=== PATIENT | male | born 2000 | race Caucasian/White ===

== ENCOUNTER 2023-10-29 19:43 | Emergency (ER) | payer OTHER, SELFPAY ==
--- NOTE | ~2023-10-29 | CT_ITS ---
EXAMINATION: CT ABDOMEN AND PELVIS WITH CONTRAST CLINICAL INFORMATION: Abdominal pain. COMPARISON: None available. TECHNIQUE: Multidetector volumetric images were obtained from the superior aspect of the liver through the pubic symphysis following administration 85 mL of Omnipaque 350 intravenous contrast. Sagittal and coronal reformatted images were obtained on the technologist's workstation. Oral contrast: No This CT examination was performed using dose optimization techniques as appropriate, variously including the following: *Automated exposure control *Adjustment of mA and/or kV according to patient size (this includes techniques or standardized protocols for targeted exams where dose is matched to indication/reason for exam; i.e. extremities or head) *Use of iterative reconstruction technique DLP: 1064 mGy-cm FINDINGS: LUNG BASES: The visualized lung bases are unremarkable. LIVER, GALLBLADDER, AND BILIARY TREE: The liver is of mild diminished attenuation. No focal liver lesions are seen. There is no intrahepatic biliary duct dilatation The gallbladder is unremarkable with no evidence of radiopaque gallstones, gallbladder wall thickening, or obvious pericholecystic inflammatory changes. PANCREAS: Unremarkable. SPLEEN: Unremarkable. ADRENAL GLANDS: Unremarkable. KIDNEYS AND URETERS: The kidneys are normal in size, shape, and attenuation. There is a 2 mm nonobstructing calculus lower pole left kidney. There is no hydronephrosis. BLADDER: Unremarkable. GASTROINTESTINAL TRACT: The small and large bowel are unremarkable. The appendix is unremarkable. ABDOMINAL WALL: No significant hernia is appreciated. LYMPH NODES: Normal. VASCULAR: Unremarkable. PELVIC VISCERA: Unremarkable. OSSEOUS STRUCTURES: Unremarkable. CT/CT abdomen pelvis w IV con IMPRESSION: 2 mm nonobstructing calculus lower pole left kidney. No acute intra-abdominal process identified. Fleischner guidelines were followed.
[2023-10-29 20:18] VITALS: BP 151/90; PULSE 104; RESP 18; TEMP 36.4; O2SAT 98; BMI 38.0
--- NOTE | 2023-10-29 20:18 | ED_ITS ---
HPI - General Adult General Chief complaint: Nausea/Vomiting/Diarrhea Stated complaint: nausea,diarrhea Time Seen by Provider: 10/29/23 23:59 Source: patient, RN notes reviewed and old records reviewed Mode of arrival: ambulatory Limitations: no limitations History of Present Illness HPI narrative: 23-year-old male presents for evaluation of abdominal pain, vomiting, diarrhea. He reports his symptoms started about 1 week ago. He also reports that he had red eyes over the last few days but 2 days ago he started to ?turn white again. ? He denies any history abdominal surgeries. Today he developed dizziness he is unsure if that is because he is dehydrated He states that multiple members of his family have had history of appendicitis and he is concerned about this He denies any difficulty urinating, blood in the urine Denies any recent travel or antibiotic use Related Data Previous Rx's Medication Instructions Recorded doxycycline hyclate 100 mg tablet 100 mg PO BID #20 tabs 10/30/23 ondansetron 4 mg disintegrating 4 mg PO Q8H PRN nausea and 10/30/23 tablet vomiting #20 tabs Allergies Allergy/AdvReac Type Severity Reaction Status Date / Time No Known Allergies Allergy Verified 10/29/23 20:18 Review of Systems 2 Constitutional: Constitutional: Denies body ache(s), Denies chills and Denies fever(s) Cardiovascular: Cardiovascular: Denies chest pain and Denies dyspnea Respiratory: Respiratory: Denies cough and Denies dyspnea Gastrointestinal: Gastrointestinal: Reports abdominal pain, Denies hematochezia, Reports diarrhea and Reports vomiting Musculoskeletal: Musculoskeletal: Denies back pain Integumentary/Breasts: Skin/Breast: Denies rash PMFSH Social History Social History Alcohol intake: current Alcohol intake frequency: holidays/special occasions only Smoked in Last 30 Days: No Use of substances other than those prescribed or required for medical reasons: Yes Substance Use Type: Marijuana Advance Directives: No Advance Directives Information Provided: Yes Physical Exam ED Vital Signs: Vital Signs - 24 hr 10/29/23 20:18 10/30/23 01:23 Temperature 97.6 F 97.6 F Pulse Rate 104 H 82 Respiratory Rate 18 18 Blood Pressure 151/90 H 116/50 L Pulse Oximetry 98 97 Oxygen Delivery Method Room Air Room Air BMI result Body Mass Index 38.0 Const General: healthy appearing, comfortable, no acute distress, alert and awake Nutritional Appearance: well nourished Orientation/consciousness: patient oriented x3 HENMT Head: Yes normocephalic and Yes atraumatic Eyes Eyelids: Yes eyelids normal Conjunctivae: conjunctivae normal Sclerae: sclerae normal Corneas: corneas normal Pupils: Equal, round and reactive pupils present EOM: EOMs intact bilaterally Neck Neck: Yes full ROM Resp Effort & Inspection: normal respiratory effort, able to speak in complete sentences and not labored GI Inspection: No distended Palpation (GI): Soft to palpation, not firm, Tenderness to palpation present (GI) in the LLQ, in the RLQ and suprapubicly; not in the epigastrum, not in the LUQ, not in the RUQ, Foreman's sign negative and with no rebound tenderness, no guarding and not rigid Skin General skin exam: elasticity normal Neuro General: patient oriented x3 Cranial nerves: Yes Equal, round and reactive pupils present and Yes Bilaterally intact EOM present Cognition (Neuro): normal cognition Extrem Other: Moving all extremities well without any obvious deformities Course Course Course Narrative: RME:?23 yo male w/ hx of asthma here w/ n/v/d x1 week. 2 episodes of vomiting. no sick contacts. denies fever, chills, abd pain, dysuria, hematuria. smokes marijuana socially. abd nd/nt. nontoxic appearing. plan for serology, labs Full HPI, ROS and PE to be performed by the primary ED provider. Reevaluation(s) Reevaluation #1: Reviewed patient's workup, he has 50 white cells in his urine no evidence of bacteria. I asked the patient about any new sexual partners reports that about a week and half ago he had a new sexual partner and did not use protection. He would like to be treated empirically for STIs will treat with ceftriaxone and doxycycline. Still awaiting patient's CT scan Time: 02:05 Medications Administered Discontinued Medications Generic Name Dose Route Start Last Admin Trade Name Freq PRN Reason Stop Dose Admin Sodium Chloride 1,000 mls @ 999 mls/hr 10/30/23 00:15 10/30/23 01:17 Ns IV 10/30/23 01:15 999 mls/hr .Q1H1M CORNELIO Administration Iohexol 85 ml 10/30/23 01:08 10/30/23 01:08 Iohexol 350 Mg/Ml 100 Ml Infus..Btl IV 10/30/23 01:09 85 ml ONCE ONE Administration Ketorolac Tromethamine 30 mg 10/30/23 00:27 10/30/23 01:17 Ketorolac Tromethamine 30 Mg/Ml Vial IVPUSH 10/30/23 00:28 30 mg ONCE ONE Administration Ondansetron HCl 4 mg 10/30/23 00:13 10/30/23 01:18 Ondansetron Hcl 4 Mg/2 Ml Vial IVPUSH 10/30/23 00:14 4 mg ONCE ONE Administration Medical Decision Making Medical Decision Making [facility] Narrative: A 23-year-old male with no significant past medical history presents for evaluation of lower abdominal pain. He denies any symptoms. His labs are reassuring. He has a very slight anemia, unclear etiology at this time. He denies any black or bloody stool. He is tender in the right lower quadrant. Given his pain started about 1 week ago I have a lower suspicion for acute appendicitis. However, we will get a CT scan to evaluate for this and also rule out diverticulitis or colitis. Differential Diagnosis Differential Diagnoses: The differential diagnosis associated with the presentation includes Acute appendicitis Abdominal pain UTI Pyelonephritis Gastroenteritis Colitis Diverticulitis IBD Lab Data [facility] Lab Attestation statement: I reviewed the patient's lab results. No leukocytosis. Very mild anemia as described above. No electrolyte abnormalities. Normal LFTs 10/29/23 21:26 10/29/23 21:26 Labs: Lab Results 10/29/23 10/29/23 10/30/23 Range/Units 21:25 21:26 01:23 WBC 10.3 (4.8-10.8) X10*3/uL RBC 4.99 (4.60-5.80) X10*6/uL Hgb 13.5 L (14.0-18.0) g/dl Hct 41.5 L (42.0-52.0) % MCV 83.2 (80.0-98.0) fL MCH 27.1 (27.0-33.0) pg MCHC 32.5 (31.0-36.0) g/dl RDW 14.0 (11.0-16.0) % Plt Count 262 (160-400) X10*3/uL MPV 9.7 (9.4-12.4) fL Immature Gran % (Auto) 0.4 (0.0-0.4) % Neut % (Auto) 63.5 (45-73) % Lymph % (Auto) 25.7 (20-40) % [place] % (Auto) 7.8 (2-11) % Eos % (Auto) 1.9 (0-4) % Baso % (Auto) 0.7 (0-2) % Lymph # (Auto) 2.6 (1.2-4.9) X10*3/uL [place] # (Auto) 0.8 (0.1-1.2) X10*3/uL Eos # (Auto) 0.2 (0.0-0.4) X10*3/uL Baso # (Auto) 0.1 (0.0-0.2) X10*3/uL Abs Immat Gran (auto) 0.04 H (0.00-0.03) X10*3/uL Absolute Neuts (auto) 6.5 (2.0-8.3) x10*3/uL Absolute Nucleated RBC 0.000 (0.0-0.012) X10*3/uL Nucleated RBC % (auto) 0.0 (0.0-0.2) /100WBC Sodium 139 (135-145) mmol/L Potassium 3.9 (3.3-5.1) mmol/L Chloride 102 (96-108) mmol/L Carbon Dioxide 29 (22-29) mmol/L Anion Gap 12 (12-20) BUN 14 (9-16) mg/dL Creatinine 0.81 (0.5-1.4) mg/dL Estim Creat Clear Calc 173.3 Estimated GFR > 60 Random Glucose 94 (60-115) mg/dL Calcium 9.2 (8.4-10.2) mg/dL Magnesium 2.0 (1.6-2.6) mg/dL Lipase 14 (8-78) U/L Urine Color Yellow Urine Appearance Clear Urine pH 6.0 (5.0-9.0) Ur Specific [place] 1.025 (1.005-1.025) Urine Protein Negative (Neg-Trace) mg/dL Urine Glucose (UA) Negative (Negative) mg/dL Urine Ketones Trace (Negative) mg/dL Urine Blood Negative (Negative) Urine Nitrite Negative (Negative) Ur Leukocyte Esterase Small (1+) H (Negative) Urine RBC 0-2 (0-2) /HPF Urine WBC >50 H (0-5) /HPF Ur Squamous Epith Cells 0-2 (0-2) /HPF Urine Bacteria None Seen (None Seen) Hyaline Casts 0-2 (0-2) /LPF COVID-19 (YUE) Negative (Negative) COVID-19 Clin Com See Note Influenza Type A (MANDA) Negative (Negative) Influenza Type B (MANDA) Negative (Negative) Influenza A & B Note See Note Independent Interpretation I performed an independent interpretation of an: CT Scan (Agree with Radiology interpretation) Radiology Impression Discussion of test interpretation with radiology: I have reviewed the radiologist's reading. (No acute findings) Discharge Plan Discharge Clinical Impression: Abdominal pain with vomiting Patient Disposition: Home, Self-Care Instructions: Acute Abdominal Pain (ED) Additional Instructions: Your workup in the emergency room today was reassuring. This includes your blood work, CT scan. Your urine sample showed a lot of white blood cells but no evidence of bacteria You were treated for both gonorrhea and chlamydia and the test will result in 2- 3 days Will call you only if this has results are positive Take doxycycline twice daily for 10 days Use Zofran for nausea/vomiting You should abstain from intercourse until your antibiotics have completed Prescriptions: New ondansetron 4 mg tablet,disintegrating 4 mg PO Q8H PRN (Reason: nausea and vomiting) Qty: 20 0RF doxycycline hyclate 100 mg tablet 100 mg PO BID Qty: 20 0RF
[2023-10-29 21:31] LABS: MANUAL DIFF FLAG NO
[2023-10-29 21:33] LABS: Basophils Absolute Auto 0.1 X10*3/uL (0.0-0.2); Basophils Percent Auto 0.7 % (0-2); Eosinophils Absolute Auto 0.2 X10*3/uL (0.0-0.4); Eosinophils Percent Auto 1.9 % (0-4); Hematocrit 41.5 % (42.0-52.0); Hemoglobin 13.5 g/dl (14.0-18.0); Imm Gran Abs Auto 0.04 X10*3/uL (0.00-0.03); Imm Gran Pct Auto 0.4 % (0.0-0.4); Lymphocytes Absolute Auto 2.6 X10*3/uL (1.2-4.9); Lymphocytes Percent Auto 25.7 % (20-40); Mean Corpuscular HGB Conc 32.5 g/dl (31.0-36.0); Mean Corpuscular Hemoglobin 27.1 pg (27.0-33.0); Mean Corpuscular Volume 83.2 fL (80.0-98.0); Mean Platelet Volume 9.7 fL (9.4-12.4); Monocytes Absolute Auto 0.8 X10*3/uL (0.1-1.2); Monocytes Percent Auto 7.8 % (2-11); Neutrophils Absolute Auto 6.5 x10*3/uL (2.0-8.3); Neutrophils Percent Auto 63.5 % (45-73); Platelet Count 262 X10*3/uL (160-400); Red Blood Count 4.99 X10*6/uL (4.60-5.80); White Blood Count 10.3 X10*3/uL (4.8-10.8)
[2023-10-29 21:45] LABS: Anion Gap 12 (12-20); Blood Urea Nitrogen 14 mg/dL (9-16); Calcium 9.2 mg/dL (8.4-10.2); Carbon Dioxide 29 mmol/L (22-29); Chloride 102 mmol/L (96-108); Creatinine Clr Calc Pharmacy 173.3; Estimated Glomerular Filt Rate > 60; Glucose Random 94 mg/dL (60-115); Lipase 14 U/L (8-78); Potassium 3.9 mmol/L (3.3-5.1); Sodium 139 mmol/L (135-145)
[2023-10-29 21:48] LABS: IDNOW Serial# 08D9AD1C; Influenza A Negative (Negative); Influenza B2 Negative (Negative)
[2023-10-29 21:48] LABS: COVID-19 Test Negative (Negative); IDNOW Serial# 152EDE1D
[2023-10-30] MEDS: iohexoL 350 MG/ML 100 ML INFUS..BTL 85 ML IV (01:08)
[2023-10-30] MEDS: Ketorolac Tromethamine 30 MG/ML VIAL IVPUSH (01:17)
[2023-10-30] MEDS: 0.9 % Sodium Chloride 1,000 ML 999 ML IV (01:17)
[2023-10-30] MEDS: ondansetron HCL 4 MG/2 ML VIAL IVPUSH (01:18)
[2023-10-30 01:23] VITALS: BP 116/50; PULSE 82; RESP 18; TEMP 36.4; O2SAT 97
[2023-10-30 01:31] LABS: Appearance Urine Clear; Color Urine Yellow; Glucose Urine UA Negative (Negative); Leukocyte Esterase Urine Small (1+) (Negative); Nitrite Urine Negative (Negative); Specific Gravity - Urine 1.025 (1.005-1.025); UMIC TRIGGER UACC YES; Urine Blood Negative (Negative); Urine Ketones Trace mg/dL (Negative); Urine Protein Negative (Neg-Trace)
[2023-10-30 01:36] LABS: Bacteria Urine None Seen (None Seen); Hyaline Casts Urine 0-2 /LPF (0-2); RBC Urine 0-2 /HPF (0-2); Squamous Epithelial Cell Urine 0-2 /HPF (0-2); UACC Culture Trigger YES; WBC Urine >50 /HPF (0-5)
[2023-10-30] MEDS: cefTRIAXone sodium 500 MG, Lidocaine HCl 1 % MPF 1 ML IM (02:50)
[2023-10-30] MEDS: Doxycycline Monohydrate 100 MG CAPSULE PO (02:53)
[2023-10-30 03:15] VITALS: BP 120/61; PULSE 80; RESP 18; TEMP 36.6; O2SAT 97
[2023-10-30 11:21] LABS: CT PCR DETECTED (Not Detect.); NG PCR NOT DETECTED (Not Detect.)
== END 2023-10-30 03:18 | disposition home or self-care (01) ==
PROVIDERS: Physician Assistant; Physician Assistant Medical; Emergency Provider Emergency Medicine; PCP Internal Medicine
DX: R11.2 Nausea with vomiting, unspecified (principal); R10.30 Lower abdominal pain, unspecified; F12.90 Cannabis use, unspecified, uncomplicated; R42 Dizziness and giddiness; Z20.2 Contact with and (suspected) exposure to infections with a predominantly sexual mode of transmission; Z79.899 Other long term (current) drug therapy; Z11.52 Encounter for screening for COVID-19; Z20.828 Contact with and (suspected) exposure to other viral communicable diseases
CPT/HCPCS: 0353U; 36415; 74177; 80048; 81001; 83690; 83735; 85025; 87086; 87502; 87635; 96361; 96372; 96374; 96375; 99284; J0696; J1885; J2405; Q9967

== ENCOUNTER 2023-11-02 03:40 | Emergency (ER) | payer OTHER, SELFPAY ==
[2023-11-02 04:05] VITALS: BP 136/83; PULSE 82; RESP 16; TEMP 36.5; O2SAT 97; BMI 36.2
--- NOTE | 2023-11-02 05:07 | MHC.EDTECH ---
Late Entry,patient came in from triage, changed into hospital attire, warm blankets applied to patient he stated he is homeless and came her because he is cold,temp is ok and is 97.8, this tech gave patient a blessing bag for when patient is discharged.
[2023-11-02 06:03] VITALS: BP 142/79; PULSE 72; RESP 16; TEMP 36.4; O2SAT 95
--- NOTE | 2023-11-02 06:06 | MHC.EDTECH ---
Hourly rounds and vitals completed,patient resting comfortably and call muñoz in reach
--- NOTE | 2023-11-02 06:24 | ED.GENADULT ---
HPI - General Adult General Chief complaint: General Medical Stated complaint: gen med Time Seen by Provider: 11/02/23 06:21 Source: patient Mode of arrival: ambulatory Limitations: no limitations History of Present Illness HPI narrative: Patient is a 23-year-old male presenting to the emergency department with complaint of pain to bilateral feet. States he is currently unhoused and has been sleeping outside. Last night felt very cold, used hand warmers with little relief. Denies any numbness or tingling to feet or toes. Denies any discoloration. Did not take any OTC medications for his pain. MD complaint: foot pain Onset (ago): hour(s) Location: lower extremity Radiation: non-radiation Severity: moderate Quality: aching Pain Consistency: constant Relieving factors: other (warming in the ED) Associated symptoms: denies other symptoms Treatments prior to arrival: none Related Data Previous Rx's Medication Instructions Recorded doxycycline hyclate 100 mg tablet 100 mg PO BID #20 tabs 10/30/23 ondansetron 4 mg disintegrating 4 mg PO Q8H PRN nausea and 10/30/23 tablet vomiting #20 tabs Allergies Allergy/AdvReac Type Severity Reaction Status Date / Time No Known Allergies Allergy Verified 10/29/23 20:18 Review of Systems Review of Systems: As per HPI. Yes all other systems are reviewed and are negative Constitutional: Constitutional: Reports as per HPI [facility] Social History Social History Alcohol intake: current Alcohol intake frequency: holidays/special occasions only Alcohol type: beer and hard liquor Smoked in Last 30 Days: Yes Substance Use Type: Marijuana Substance Use Frequency Other:: 4-5xweek Last Used Substance: Hours (ago) Advance Directives: No Advance Directives Information Provided: No Physical Exam ED Vital Signs: Vital Signs - 24 hr 11/02/23 04:05 11/02/23 06:03 Temperature 97.7 F 97.6 F Pulse Rate 82 72 Respiratory Rate 16 16 Blood Pressure 136/83 142/79 H Pulse Oximetry 97 95 Oxygen Delivery Method Room Air Room Air BMI result Body Mass Index 36.2 Vital signs have been reviewed and appear to be correct. Blood pressure mildly elevated. Heart rate normal. Respiratory rate normal. Temperature normal. Oxygen saturation normal. Const General: cooperative, healthy appearing and no acute distress Orientation/consciousness: oriented to person, oriented to place, oriented to time and patient oriented x3 Limitations: no limitations HENMT Head: Yes normocephalic and Yes atraumatic Ears: external ears normal General nose exam: Normal external nose present Face and sinus: Yes face symmetric Mouth: oropharynx normal and moist mucous membranes Throat: Yes uvula midline Eyes Pupils: Equal, round and reactive pupils present Neck Neck: Yes normal visual inspection and Yes supple Resp Effort & Inspection: normal respiratory effort and able to speak in complete sentences Auscultation: clear to auscultation bilaterally Cardio Rate: regular rate Rhythm: regular rhythm Heart sounds: S1 normal heart sound present and S2 normal heart sound present GI Palpation (GI): Soft to palpation and nontender Auscultation: normoactive bowel sounds General: Yes no CVA tenderness Back/Spine/Pelvis Back: no CVA tenderness Skin General skin exam: elasticity normal and turgor normal Neuro General: oriented to person, oriented to place, oriented to time, patient oriented x3, moves all extremities, no focal motor deficits and CN's II-XI intact bilaterally Cranial nerves: Yes Equal, round and reactive pupils present Cognition (Neuro): normal cognition Extrem General: Yes full ROM, Yes no pedal edema and Yes no calf tenderness Right lower extremity: foot Details: normal capillary refill, normal to inspection, toes with normal ROM, no edema, vascular exam Details: dorsalis pedis pulse present and posterior tibial pulse present and motor-sensory exam Details: light-touch normal; no tenderness Left lower extremity: foot Details: normal capillary refill, normal to inspection, toes with normal ROM, no edema, vascular exam Details: dorsalis pedis pulse present and posterior tibial pulse present and motor-sensory exam Details: light-touch normal; no tenderness Psych Mental Status: mental status grossly normal Affect: normal affect Thought process: Normal thought process present Medical Decision Making Medical Decision Making MDM Narrative: Patient is a 23-year-old male presenting to the emergency department with complaint of pain to bilateral feet. On exam patient is awake, A+Ox3, VS WNL, afebrile, normal neurological exam without focal deficits, physical exam findings as above. Given reported symptoms and physical exam findings, initial differential includes hypothermia, frostbite, cellulitis, vascular injury. Physical exam findings reassuring, do not suspect frostbite. Feel patient is stable for discharge at this time. Patient provided with resources for homeless shelters and temporary housing. Provided with hospital socks. Return precautions discussed. Patient verbalized understanding of and agreement with plan. Differential Diagnosis Differential Diagnoses: The differential diagnosis associated with the presentation includes As per MDM. External Record Review External record reviewed: Inpatient record, Office record and Outpatient record Discharge Plan Discharge Clinical Impression: Bilateral foot pain Patient Disposition: Home, Self-Care Instructions: Frostbite (ED), Acute Hypothermia (ED) Additional Instructions: You were evaluated in the emergency department today for feeling cold and pain to both feet after sleeping outside. Your physical exam was reassuring and did not show evidence of hypothermia or frostbite. You are being provided with a list of homeless shelters and temporary housing. Return to the emergency department if you develop new numbness, tingling, or change of color to your feet or hands. Prescriptions: No Action ondansetron 4 mg tablet,disintegrating 4 mg PO Q8H PRN (Reason: nausea and vomiting) Qty: 20 0RF doxycycline hyclate 100 mg tablet 100 mg PO BID Qty: 20 0RF
--- NOTE | 2023-11-02 08:02 | PC.NURSE ---
assumed care of pt at 0700. pt sleeping soundly on stretcher, rr even/unlabored. diet order placed. awaiting tray. called kitchen. call muñoz within reach. plan of care ongoing.
--- NOTE | 2023-11-02 08:40 | PC.NURSE ---
tray delivered from kitchen. pt woken up to eat.
== END 2023-11-02 09:27 | disposition home or self-care (01) ==
PROVIDERS: Emergency Provider Emergency Medicine; PCP Internal Medicine
DX: M79.672 Pain in left foot (principal); M79.671 Pain in right foot
CPT/HCPCS: 99283; 99284

== ENCOUNTER 2023-11-06 00:09 | Emergency (ER) | payer OTHER, SELFPAY ==
[2023-11-06 00:23] VITALS: BP 143/90; PULSE 97; RESP 18; TEMP 36.7; O2SAT 97; BMI 35.5
--- NOTE | 2023-11-06 05:16 | ED_ITS ---
HPI - Back Pain/Injury General Chief Complaint: Back Pain/Injury Stated Complaint: Lower back pain/R leg pain -No Inj Time Seen by Provider: 11/06/23 04:42 Source: patient Mode of arrival: ambulatory Limitations: no limitations History of Present Illness HPI Narrative: Patient has chronic back problems when complaining of increased pain in the lower back after he fell 3 days ago. Patient apparently slipped and fell on the ground pain got worse since then no radiation of pain no incontinence patient ambulatory as such Related Data Previous Rx's Medication Instructions Recorded doxycycline hyclate 100 mg tablet 100 mg PO BID #20 tabs 10/30/23 ondansetron 4 mg disintegrating 4 mg PO Q8H PRN nausea and 10/30/23 tablet vomiting #20 tabs Allergies Allergy/AdvReac Type Severity Reaction Status Date / Time No Known Allergies Allergy Verified 10/29/23 20:18 Review of Systems Review of Systems: Yes all other systems are reviewed and are negative [facility] Past Medical History Medical History (Updated 11/06/23 @ 05:35 by Zach Flores MD) Chronic back pain Social History Social History Alcohol intake: current Alcohol intake frequency: does not drink Alcohol type: beer and hard liquor Smoked in Last 30 Days: No Use of substances other than those prescribed or required for medical reasons: Yes Substance Use Type: Marijuana Advance Directives: No Advance Directives Information Provided: Yes Physical Exam Vital Signs: Vital Signs: Last Vital Signs Temp 98.2 F 11/06/23 06:37 Pulse 84 11/06/23 06:37 Resp 16 11/06/23 06:37 BP 144/79 H 11/06/23 06:37 Pulse Ox 96 11/06/23 06:37 O2 Del Method Room Air 11/06/23 06:37 BMI result Body Mass Index 35.5 Appearance: Alert. Oriented X3. No acute distress. ENT: Pharynx normal. Oral Mucosa moist Neck: Normal inspection. Neck supple. CVS: Normal heart rate and rhythm. Pulses normal. Respiratory: No respiratory distress. Equal air entry bilateral, no wheezing/rales/rhonchi Abdomen: Soft and nontender. Bowel sounds are present, no mass palpable, no CVA tenderness back: Mild tenderness L3-L4 SLR negative gait normal no motor weakness Skin: Skin warm and dry. Normal skin color. Normal skin turgor. Extremities: No lower extremity edema. No calf tenderness Neuro: Oriented X 3. No motor deficit. No sensory deficit.No cerebellar signs , cranial nerves II-XII intact Medications Administered Discontinued Medications Generic Name Dose Route Start Last Admin Trade Name Freq PRN Reason Stop Dose Admin Tramadol HCl 50 mg 11/06/23 05:28 11/06/23 05:38 Tramadol Hcl 50 Mg Tablet PO 11/06/23 05:29 50 mg ONCE ONE Administration Medical Decision Making Medical Decision Making [facility] Narrative: Patient with chronic back pain came with increased pain in the lower back after the fall no signs of injury patient ambulating steady gait no signs of cauda equina. Patient does have pain medication at home Advised to continue same medication and apply ice pack Differential Diagnosis Differential Diagnoses: The differential diagnosis associated with the presentation includes Chronic back pain/acute vertebral injury Independent Interpretation I performed an independent interpretation of an: Plain X-Ray Radiology Impression Discussion of test interpretation with radiology: I have reviewed the radiologist's reading. Discharge Plan Discharge Clinical Impression: Strain of lumbar region Patient Disposition: Home, Self-Care Instructions: Low Back Strain (ED) Additional Instructions: Continueto take naproxen and Flexeril and follow with PCP Prescriptions: No Action ondansetron 4 mg tablet,disintegrating 4 mg PO Q8H PRN (Reason: nausea and vomiting) Qty: 20 0RF doxycycline hyclate 100 mg tablet 100 mg PO BID Qty: 20 0RF Interventions: ED Discharge Assessment Last Done: 11/06/23 06:51
[2023-11-06 05:22] VITALS: BP 133/88; PULSE 99; RESP 16; TEMP 36.7; O2SAT 98
[2023-11-06] MEDS: traMADoL HCL 50 MG TABLET PO (05:38)
--- NOTE | 2023-11-06 05:51 | PC.NURSE ---
pt medicated according to dec. pt okay to sleeping in room until am prior to discharge to waiting room per supercharge repair supervisor
[2023-11-06 06:37] VITALS: BP 144/79; PULSE 84; RESP 16; TEMP 36.8; O2SAT 96
== END 2023-11-06 06:55 | disposition home or self-care (01) ==
PROVIDERS: Emergency Provider Internal Medicine
DX: S39.012A Strain of muscle, fascia and tendon of lower back, initial encounter (principal); W01.0XXA Fall on same level from slipping, tripping and stumbling without subsequent striking against object, initial encounter; Y93.9 Activity, unspecified; Y92.410 Unspecified street and highway as the place of occurrence of the external cause; Y99.9 Unspecified external cause status
CPT/HCPCS: 99283; 99284

== ENCOUNTER 2023-11-07 02:05 | Emergency (ER) | payer OTHER, SELFPAY ==
[2023-11-07 02:06] VITALS: BP 134/84; PULSE 100; RESP 18; TEMP 36.5; O2SAT 94; BMI 39.9
--- NOTE | 2023-11-07 07:16 | ED.GENADULT ---
HPI - General Adult General Chief complaint: General Medical Stated complaint: cold Time Seen by Provider: 11/07/23 07:08 Source: patient Mode of arrival: ambulatory Limitations: no limitations History of Present Illness HPI narrative: Patient is homeless, came in to get out of the cold. No other complaints Onset (ago): year(s) Related Data Previous Rx's Medication Instructions Recorded doxycycline hyclate 100 mg tablet 100 mg PO BID #20 tabs 10/30/23 ondansetron 4 mg disintegrating 4 mg PO Q8H PRN nausea and 10/30/23 tablet vomiting #20 tabs Allergies Allergy/AdvReac Type Severity Reaction Status Date / Time No Known Allergies Allergy Verified 10/29/23 20:18 Review of Systems Review of Systems: Yes all other systems are reviewed and are negative Neurologic: Denies Sensory deficit (Neuro) [facility] Past Medical History Medical History Chronic back pain Social History Social History Alcohol intake: current Alcohol intake frequency: does not drink Alcohol type: beer and hard liquor Substance Use Type: Marijuana Advance Directives: No Advance Directives Information Provided: No Physical Exam ED Vital Signs: Vital Signs - 24 hr 11/07/23 02:06 Temperature 97.7 F Pulse Rate 100 Respiratory Rate 18 Blood Pressure 134/84 Pulse Oximetry 94 Oxygen Delivery Method Room Air BMI result Body Mass Index 39.9 Const General: healthy appearing Nutritional Appearance: obese Orientation/consciousness: oriented to person and patient oriented x3 Limitations: no limitations HENMT Head: Yes normal to inspection Ears: external ears normal General nose exam: Normal external nose present Mouth: Normal oral and palatal mucosa present and oropharynx normal Throat: Yes posterior oropharynx normal Eyes General: appearance normal, both eyes and all related structures Neck Neck: Yes normal visual inspection Chest Chest palpation & inspection: normal inspection of the chest Resp Auscultation: clear to auscultation bilaterally Cardio Jugular venous distension: no JVD Rate: regular rate Rhythm: regular rhythm Heart sounds: S1 normal heart sound present and S2 normal heart sound present GI Inspection: Yes normal to inspection Palpation (GI): Soft to palpation, nontender and No hepatosplenomegaly present Auscultation: normal bowel sounds General: Yes no CVA tenderness Back/Spine/Pelvis Back: no CVA tenderness Skin General skin exam: no rashes or lesions noted Neuro General: oriented to person and patient oriented x3 Cranial nerves: Yes CN's II-XII intact bilaterally Motor exam (neuro): 5/5 motor strength present throughout Sensory Exam: No Sensory deficit (Neuro) Extrem General: Yes normal to inspection Psych Appearance: grossly normal Course Reevaluation(s) Reevaluation #1: No obvious illness, will dc with senior living lis Time: 07:29 Discharge Plan Discharge Clinical Impression: Homeless Patient Disposition: Home, Self-Care Prescriptions: No Action ondansetron 4 mg tablet,disintegrating 4 mg PO Q8H PRN (Reason: nausea and vomiting) Qty: 20 0RF doxycycline hyclate 100 mg tablet 100 mg PO BID Qty: 20 0RF Referrals: Physician,Unknown J [Primary Care Provider] - 5 days
[2023-11-07 07:26] VITALS: BP 105/50; PULSE 79; RESP 18; TEMP 36.6; O2SAT 98
--- NOTE | 2023-11-07 07:29 | PC.NURSE ---
pt sleeping, wakes to verbal stimulus, vss, pt states his feet hurt from being cold, pt not wanting to take off shoes for this nurse to assess bilateral feet. call muñoz within reach, will continue to monitor.
--- NOTE | 2023-11-07 07:36 | PC.NURSE ---
pt to discharge with security assistance
== END 2023-11-07 07:39 | disposition home or self-care (01) ==
PROVIDERS: Emergency Provider Emergency Medicine
DX: Z59.00 Homelessness unspecified (principal)
CPT/HCPCS: 99282; 99283

== ENCOUNTER 2023-12-13 01:13 | Emergency (ER) | payer OTHER, SELFPAY ==
[2023-12-13 01:17] VITALS: BP 138/79; PULSE 94; RESP 16; TEMP 36.5; O2SAT 97; BMI 42.1
[2023-12-13 01:29] VITALS: BP 145/78; PULSE 85; RESP 14; TEMP 36.9; O2SAT 98
--- NOTE | 2023-12-13 02:49 | ED_ITS ---
HPI - General Adult General Chief complaint: General Medical Stated complaint: ?Cyst Time Seen by Provider: 12/13/23 01:56 Source: patient Mode of arrival: ambulatory History of Present Illness HPI narrative: 23-year-old male who reports that he has a small lump in the right armpit that he feels has been getting bigger and has not been associated with any decreased inability to move his right upper extremity and denies any drainage/feve r/chills. Related Data Previous Rx's Medication Instructions Recorded doxycycline hyclate 100 mg tablet 100 mg PO BID #20 tabs 10/30/23 ondansetron 4 mg disintegrating 4 mg PO Q8H PRN nausea and 10/30/23 tablet vomiting #20 tabs Allergies Allergy/AdvReac Type Severity Reaction Status Date / Time No Known Allergies Allergy Verified 10/29/23 20:18 Review of Systems Review of Systems: Pertinent positives and negatives as stated in HPI [facility] Past Medical History Source: nursing notes reviewed Medical History Chronic back pain Social History Social History Alcohol intake: current Alcohol intake frequency: does not drink Alcohol type: beer and hard liquor Substance Use Type: Marijuana Advance Directives: No Advance Directives Information Provided: Yes Physical Exam ED Vital Signs: Vital Signs - 24 hr 12/13/23 01:17 12/13/23 01:29 Temperature 97.7 F 98.4 F Pulse Rate 94 85 Respiratory Rate 16 14 Blood Pressure 138/79 145/78 H Pulse Oximetry 97 98 Oxygen Delivery Method Room Air Room Air BMI result Body Mass Index 42.1 VITAL SIGNS: Reviewed. GENERAL: Well developed, well nourished, in no acute distress. HEAD: Normocephalic/atraumatic EYES: PERRLA, EOMI LUNGS: Normal breath sounds. No adventitious sounds or accessory muscle use. SpO2<98> RIGHT AXILLA: There is no noted erythema or induration, there is a small subcentimeter mobile lump noted and suspect possible lymph node this does not appear to be attached to any hair follicle and there is no corresponding papule CARDIOVASCULAR: Regular rate and rhythm without noted murmurs ABDOMEN: Soft, non-tender, non-distended with bowel sounds. MUSCULOSKELETAL: No tenderness, deformities, or effusions noted on gross inspection. EXTREMITIES: No cyanosis, clubbing or edema. SKIN: Inspection of the skin reveals no rashes NEUROLOGIC: Alert and oriented x 4. Strength and sensation to light touch were grossly intact x 4. Medical Decision Making Medical Decision Making [facility] Narrative: 23-year-old male with history and clinical presentation most consistent with an isolated subcentimeter lymph node but possible furuncle, no evidence of abscess or infection. Patient is noted to be homeless and was provided with outpatient resources and offered to wait in the waiting room at this time. Differential Diagnosis Differential Diagnoses: The differential diagnosis associated with the presentation includes Please see the discussion above Admission/Observation Consideration of admission/observation: Escalation of care including admission/observation considered Please see the discussion above Discharge Plan Discharge Clinical Impression: Furuncle of axilla Patient Disposition: Home, Self-Care Instructions: Furunculosis and Carbunculosis (ED) Additional Instructions: 1. Please follow up with the primary care doctor at your earliest convenience for further evaluation. Return to the ER for any worsening symptoms. Prescriptions: No Action ondansetron 4 mg tablet,disintegrating 4 mg PO Q8H PRN (Reason: nausea and vomiting) Qty: 20 0RF doxycycline hyclate 100 mg tablet 100 mg PO BID Qty: 20 0RF
== END 2023-12-13 03:14 | disposition home or self-care (01) ==
PROVIDERS: Emergency Provider Student in an Organized Health Care Education/Training Program
DX: L02.421 Furuncle of right axilla (principal)
CPT/HCPCS: 99282; 99284

== ENCOUNTER 2023-12-13 21:44 | Emergency (ER) | payer OTHER, SELFPAY ==
[2023-12-13 21:48] VITALS: BP 141/81; PULSE 95; RESP 16; TEMP 36.7; O2SAT 100; BMI 42.6
[2023-12-13 23:35] VITALS: BP 135/76; PULSE 89; RESP 18; TEMP 36.6; O2SAT 98
--- NOTE | 2023-12-13 23:54 | ED.GENADULT ---
HPI - General Adult General Chief complaint: General Medical Stated complaint: hand hurts to close Time Seen by Provider: 12/13/23 23:18 Source: patient Mode of arrival: ambulatory Limitations: no limitations History of Present Illness HPI narrative: Patient is a 23-year-old male who presents emergency department for evaluation reporting bilateral hands being cold. He states he is homeless and does not warrant to be in the cold tonight and is requesting to sleep here in the emergency department. Reports that he has information for local homeless shelters and he is working with [facility] [employer] He denies any other physical complaints. Related Data Previous Rx's Medication Instructions Recorded doxycycline hyclate 100 mg tablet 100 mg PO BID #20 tabs 10/30/23 ondansetron 4 mg disintegrating 4 mg PO Q8H PRN nausea and 10/30/23 tablet vomiting #20 tabs Allergies Allergy/AdvReac Type Severity Reaction Status Date / Time No Known Allergies Allergy Verified 10/29/23 20:18 Review of Systems Review of Systems: Yes all other systems are reviewed and are negative PMFSH Past Medical History Attestation statement: The following information was validated with the patient. Source: old records reviewed Medical History Chronic back pain Social History Social History Alcohol intake: current Alcohol intake frequency: does not drink Alcohol type: beer and hard liquor Substance Use Type: Marijuana Advance Directives: No Advance Directives Information Provided: No Physical Exam ED Vital Signs: Vital Signs - 24 hr 12/13/23 21:48 12/13/23 23:35 Temperature 98.0 F 97.9 F Pulse Rate 95 89 Respiratory Rate 16 18 Blood Pressure 141/81 H 135/76 Pulse Oximetry 100 98 Oxygen Delivery Method Room Air Room Air BMI result Body Mass Index 42.6 Appearance: Alert.?Oriented to person, place and time. No acute distress.?Normal affect. Neck: Normal inspection.? Neck supple.?? CVS: Heart sounds normal. Normal heart rate and rhythm.? Pulses normal.?? Respiratory: No respiratory distress.? Lung sounds clear to auscultation bilaterally?? Skin: Skin warm and dry.? Normal skin color.? Normal skin turgor.?? Extremities: No lower extremity edema.? Neuro: Moves all extremities spontaneously. Sensation intact bilaterally. Ambulates with normal steady gait. Medical Decision Making Medical Decision Making MDM Narrative: Patient is a 23-year-old male who is currently homeless presenting to the emergency department reporting cold hands and requesting to spend the night in the emergency department. His physical examination is benign and he has no further physical complaints. Since being in the department he reports his signs are now warm. He has no precipitating injury or pain. He was offered resources for local homeless shelters he however declines reporting that he already has these available to him. At this time he is stable for discharge. Differential Diagnosis Differential Diagnoses: The differential diagnosis associated with the presentation includes (Homelessness, hypothermia, raynauds) Social Determinants Patient?s care significantly limited by Social Determinants of Health including: Inadequate housing Discharge Plan Discharge Clinical Impression: Complaining of cold hands Patient Disposition: Home, Self-Care Prescriptions: No Action ondansetron 4 mg tablet,disintegrating 4 mg PO Q8H PRN (Reason: nausea and vomiting) Qty: 20 0RF doxycycline hyclate 100 mg tablet 100 mg PO BID Qty: 20 0RF Referrals: Radha Vela MD [Primary Care Provider] -
== END 2023-12-14 00:15 | disposition home or self-care (01) ==
PROVIDERS: Emergency Provider Emergency Medicine Emergency Medical Services; PCP Internal Medicine
DX: M79.641 Pain in right hand (principal); M79.642 Pain in left hand
CPT/HCPCS: 99282; 99283

== ENCOUNTER 2023-12-14 22:52 | Emergency (ER) | payer OTHER, SELFPAY ==
[2023-12-14 22:55] VITALS: BP 143/84; PULSE 101; RESP 16; TEMP 36.2; O2SAT 96; BMI 44.3
--- NOTE | 2023-12-14 23:48 | ED.GENADULT ---
HPI - General Adult General Chief complaint: General Medical Stated complaint: Back and feet pain Time Seen by Provider: 12/14/23 23:48 Source: patient Mode of arrival: ambulatory Limitations: no limitations History of Present Illness HPI narrative: Patient is a 23 year old assigned male at with no reported medical history presenting to the emergency department today with homelessness. Patient states that he is homeless and needing a warm place to sleep. Patient denies any dizziness, lightheadedness, abdominal pain, nausea, vomiting, fever, chills, blurry vision, double vision, loss of vision, chest pain, difficulty breathing, shortness of breath, back pain, night sweats, pain with urination, increased urinary frequency, increased urinary urgency, blood in his urine or stool, syncope or a near syncopal episode, recent trauma or falls, bowel incontinence, bladder incontinence, bowel retention, bladder retention, or any other complaints at this time. Relieving factors: none Exacerbating factors: none Associated symptoms: denies other symptoms Treatments prior to arrival: none Related Data Previous Rx's Medication Instructions Recorded doxycycline hyclate 100 mg tablet 100 mg PO BID #20 tabs 10/30/23 ondansetron 4 mg disintegrating 4 mg PO Q8H PRN nausea and 10/30/23 tablet vomiting #20 tabs Allergies Allergy/AdvReac Type Severity Reaction Status Date / Time No Known Allergies Allergy Verified 12/14/23 22:59 Review of Systems Constitutional: Constitutional: Reports no additional constitutional complaints, Denies chills, Denies fever(s) and Denies night sweats Eyes: Eyes: Reports no additional eye complaints, Denies blurry vision, Denies change in vision, Denies diplopia, Denies eye discharge, Denies loss of vision and Denies eye pain ENT: Denies dizziness Cardiovascular: Cardiovascular: Reports no additional cardiovascular complaints, Denies chest pain, Denies lightheadedness, Denies Loss of Consciousness and Denies dyspnea Respiratory: Respiratory: Reports no additional respiratory complaints and Denies dyspnea Gastrointestinal: Gastrointestinal: Reports no additional gastrointestinal complaints, Denies abdominal pain, Denies melena, Denies hematochezia, Denies change in bowel habits and Denies change in stool character Genitourinary: Genitourinary: Reports no additional male genitourinary complaints, Denies hematuria, Denies oliguria, Denies difficulty urinating, Denies dysuria, Denies urinary frequency, Denies urinary hesitancy, Denies urinary incontinence and Denies urinary urgency Musculoskeletal: Musculoskeletal: Reports no additional musculoskeletal complaints, Denies numbness and Denies tingling Neurologic: Denies dizziness, Denies loss of vision, Denies numbness and Denies tingling Psychiatric: Psychiatric: Reports no additional psychiatric complaints Endocrine: Endocrine: Reports no additional endocrine complaints Hematologic/Lymphatic: Hematologic/Lymphatic: Reports no additional hematologic/lymphatic complaints Allergic/Immunologic: Allergic/Immunologic: Reports no additional allergic/immunologic complaints COUNT INCLUDES [facility] Past Medical History Attestation statement: The following information was validated with the patient. Source: old records reviewed and nursing notes reviewed Medical History Chronic back pain Social History Social History Alcohol intake: current Alcohol intake frequency: does not drink Alcohol type: beer and hard liquor Substance Use Type: Marijuana Advance Directives: No Advance Directives Information Provided: No Physical Exam ED Vital Signs: Vital Signs - 24 hr 12/14/23 22:55 Temperature 97.2 F Pulse Rate 101 H Respiratory Rate 16 Blood Pressure 143/84 H Pulse Oximetry 96 Oxygen Delivery Method Room Air BMI result Body Mass Index 44.3 Const General: cooperative, no acute distress, alert and awake Nutritional Appearance: well nourished Orientation/consciousness: patient oriented x3 Limitations: no limitations HENMT Head: Yes normal to inspection and Yes atraumatic Ears: hearing grossly normal bilaterally and external ears normal General nose exam: Normal external nose present, no nasal discharge noted and no epistaxis Face and sinus: Yes normal facial exam, No abrasion and No laceration Mouth: Normal oral and palatal mucosa present, no drooling and no muffled voice Eyes General: appearance normal, both eyes and all related structures Periorbital: periorbital findings normal Eyelids: Yes eyelids normal Conjunctivae: conjunctivae normal Pupils: Equal, round and reactive pupils present EOM: EOMs intact bilaterally Neck Neck: Yes normal visual inspection, Yes full ROM and Yes no lymphadenopathy Chest Chest palpation & inspection: normal inspection of the chest Resp Effort & Inspection: normal respiratory effort and able to speak in complete sentences GI Inspection: Yes normal to inspection Neuro General: patient oriented x3 and moves all extremities Cranial nerves: Yes Equal, round and reactive pupils present Cognition (Neuro): normal cognition Motor exam (neuro): 5/5 motor strength present throughout Sensory Exam: Normal double simultaneous stimulation for sensation Coordination: [id number] test normal Extrem General: Yes normal to inspection, Yes full ROM and Yes capillary refill normal Psych Appearance: grossly normal Mental Status: mental status grossly normal Affect: normal affect Attitude: cooperative Thought process: Normal thought process present Thought content: Normal thought content present Insight: Good insight present (Psych) Medical Decision Making Medical Decision Making MDM Narrative: Patient is a 23 year old assigned male at with no reported medical history presenting to the emergency department today with homelessness. Patient's physical exam was unremarkable. I explained my physical exam findings to the patient. I answered all questions asked by the patient. I stressed the importance of the patient taking his medication as prescribed. I stressed the importance of the patient following up with his primary care provider. I stressed the importance of the patient returning to the emergency department immediately if he were to develop any dizziness, shortness of breath, difficulty breathing, chest pain, blurry vision, loss of vision, nausea, vomiting, abdominal pain, fever, chills, back pain, or any other complaints. Patient verbalized agreement and understanding with this treatment plan and discharge. Differential Diagnosis Differential Diagnoses: The differential diagnosis associated with the presentation includes Homelessness Admission/Observation Consideration of admission/observation: Escalation of care including admission/observation considered Patient would have been admitted to the hospital had his clinical presentation warranted hospital admission. Discharge Plan Discharge Clinical Impression: Homeless Patient Disposition: Home, Self-Care Additional Instructions: Follow up with your primary care provider. Return to the emergency department immediately if you develop any dizziness, shortness of breath, difficulty breathing, chest pain, blurry vision, loss of vision, nausea, vomiting, abdominal pain, fever, chills, back pain, or any other complaints. Prescriptions: No Action ondansetron 4 mg tablet,disintegrating 4 mg PO Q8H PRN (Reason: nausea and vomiting) Qty: 20 0RF doxycycline hyclate 100 mg tablet 100 mg PO BID Qty: 20 0RF Referrals: Radha Vela MD [Primary Care Provider] - Print Language: Cymraes
== END 2023-12-15 04:12 | disposition home or self-care (01) ==
PROVIDERS: Emergency Provider Internal Medicine; PCP Internal Medicine
DX: Z59.02 Unsheltered homelessness (principal)
CPT/HCPCS: 99282

== ENCOUNTER 2023-12-15 18:32 | Emergency (ER) | payer OTHER, SELFPAY ==
--- NOTE | ~2023-12-15 | XR_ITS ---
EXAMINATION: XR CHEST CLINICAL INFORMATION: Chest pain COMPARISON: None available. TECHNIQUE: Frontal view of the chest was obtained. FINDINGS: The mediastinum is within normal limits. The left hilum is normal. There is slight indistinctness surrounding the right hilum. This could represent an evolving area of pneumonia. There is no consolidation in the left lung. No pleural fluid or pneumothorax XR/XR chest 1V IMPRESSION: Hazy density surrounding the right hilum is not specific but in the appropriate setting could be related to pneumonia
--- NOTE | 2023-12-15 18:35 | ECG_ITS ---
Test Reason : CHEST PAIN Blood Pressure : / mmHG Vent. Rate : 098 BPM Atrial Rate : 098 BPM P-R Int : 162 ms QRS Dur : 084 ms QT Int : 340 ms P-R-T Axes : 043 068 040 degrees QTc Int : 434 ms Normal sinus rhythm Normal ECG No previous ECGs available Referred By: Generic ED Physician Electronically Signed By:REANNA BACH
[2023-12-15 19:03] VITALS: BP 135/78; PULSE 86; RESP 16; TEMP 36.2; O2SAT 96; BMI 43.9
[2023-12-15 20:24] LABS: MANUAL DIFF FLAG NO
[2023-12-15 20:28] LABS: Basophils Absolute Auto 0.1 X10*3/uL (0.0-0.2); Eosinophils Absolute Auto 0.4 X10*3/uL (0.0-0.4); Hematocrit 40.6 % (42.0-52.0); Hemoglobin 13.2 g/dl (14.0-18.0); Imm Gran Abs Auto 0.09 X10*3/uL (0.00-0.03); Imm Gran Pct Auto 0.9 % (0.0-0.4); Lymphocytes Absolute Auto 3.3 X10*3/uL (1.2-4.9); Lymphocytes Percent Auto 33.3 % (20-40); Mean Corpuscular HGB Conc 32.5 g/dl (31.0-36.0); Mean Corpuscular Hemoglobin 26.7 pg (27.0-33.0); Mean Platelet Volume 9.6 fL (9.4-12.4); Monocytes Percent Auto 9.8 % (2-11); Platelet Count 309 X10*3/uL (160-400); Red Blood Count 4.95 X10*6/uL (4.60-5.80); Red Cell Distribution Width 13.8 % (11.0-16.0); White Blood Count 9.8 X10*3/uL (4.8-10.8)
[2023-12-15 20:39] LABS: COVID-19 Test Negative (Negative); IDNOW Serial# 152EDE1D
[2023-12-15 20:40] LABS: IDNOW Serial# 08D9AD1C; Influenza A Negative (Negative); Influenza B2 Negative (Negative)
[2023-12-15 20:41] LABS: Alanine Aminotransferase 24 U/L (0-40); Albumin Level 4.1 g/dL (3.5-5.0); Alkaline Phosphatase 104 U/L (39-117); Anion Gap 11 (12-20); Aspartate Amino Transferase 25 U/L (5-37); Bilirubin Total 0.2 mg/dL (0.0-1.0); Blood Urea Nitrogen 16 mg/dL (9-16); Calcium 9.2 mg/dL (8.4-10.2); Carbon Dioxide 26 mmol/L (22-29); Chloride 108 mmol/L (96-108); Creatinine Clr Calc Pharmacy 186.2; Estimated Glomerular Filt Rate > 60; Glucose Random 104 mg/dL (60-115); Sodium 141 mmol/L (135-145); Total Protein 7.8 g/dL (6.5-8.0)
[2023-12-15 21:00] LABS: Troponin-I High Sensitivity < 2.7 ng/L (<3.5-35.0)
--- NOTE | 2023-12-15 23:18 | ED_ITS ---
HPI - Chest Pain General Chief Complaint: Chest Pain Stated Complaint: chest pain,sob Time Seen by Provider: 12/15/23 22:49 Source: patient Mode of arrival: ambulatory Limitations: no limitations History of Present Illness HPI narrative: 23-year-old male presents to ED for chest pain coughing. Patient still having symptoms for 3 days. Patient denies any leg swelling, calf pain, coughing up blood, recent long travel, pleurisy, recent surgery, history of PE, or estrogen hormone use.. Related Data Previous Rx's Medication Instructions Recorded doxycycline hyclate 100 mg tablet 100 mg PO BID #20 tabs 10/30/23 ondansetron 4 mg disintegrating 4 mg PO Q8H PRN nausea and 10/30/23 tablet vomiting #20 tabs amoxicillin 500 mg capsule 1,000 mg (2 x 500 mg) PO TID 5 12/16/23 days #30 caps doxycycline hyclate 100 mg capsule 100 mg PO BID 7 days #14 caps 12/16/23 Allergies Allergy/AdvReac Type Severity Reaction Status Date / Time No Known Allergies Allergy Verified 12/15/23 19:07 Review of Systems 2 Review of Systems: Coughnig with chest pain Yes all other systems are reviewed and are negative [facility] Past Medical History Medical History Chronic back pain Social History Social History Alcohol intake: current Alcohol intake frequency: does not drink Alcohol type: beer and hard liquor Substance Use Type: Marijuana Advance Directives: No Advance Directives Information Provided: No Physical Exam 2 Vital Signs: Vital Signs: Last Vital Signs Temp 97.5 F 12/16/23 01:06 Pulse 78 12/16/23 01:06 Resp 19 12/16/23 01:06 BP 133/60 12/16/23 01:06 Pulse Ox 98 12/16/23 01:06 O2 Del Method Room Air 12/16/23 01:06 BMI result Body Mass Index 43.9 Const: General: cooperative, healthy appearing, comfortable, no acute distress, well developed, alert, awake and Physically active O rientation/consciousness: oriented to person, oriented to place, oriented to time and patient oriented x3 HEENT: Head: Yes normal to inspection, Yes No palpable skull fracture present, Yes normocephalic and No atraumatic Eyes: General: appearance normal, both eyes and all related structures Neck: Neck: Yes normal visual inspection, Yes full ROM, Yes no lymphadenopathy, Yes no meningeal signs, Yes trachea midline, Yes supple, No anterior neck swelling and No tender Chest: Chest palpation & inspection: normal inspection of the chest and normal palpation of entire chest wall Resp: Effort & Inspection: normal respiratory effort and able to speak in complete sentences Auscultation: clear to auscultation bilaterally Cardio: Jugular venous distension: no JVD Heart sounds: S1 normal heart sound present and S2 normal heart sound present GI: Inspection: Yes normal to inspection Palpation (GI): Soft to palpation, not firm, nontender, no guarding and not rigid : General: No CVA tenderness and Yes no CVA tenderness Back/Spine/Pelvis: Back: no CVA tenderness, No CVA tenderness and No back tenderness Skin: General skin exam: no rashes or lesions noted, elasticity normal and turgor normal Neuro: General: oriented to person, oriented to place, oriented to time, patient oriented x3, gait normal, Normal light touch and pain sensation and no meningeal signs Extrem: Other: Bilateral lower extremity negative for swelling, pitting edema, or calf tenderness. General: Yes normal to inspection and Yes full ROM Psych: Appearance: grossly normal, well kempt and not disheveled Medical Decision Making Medical Decision Making [facility] Narrative: 23-year-old male with no past medical history presents for coughing and chest pain. Patient denies any shortness of breath, swelling of extremities, pitting edema, or calf pain. E. Chest x-ray shows pneumonia. No need for admission. Patient vital signs stable Differential Diagnosis Differential Diagnoses: The differential diagnosis associated with the presentation includes (Pneumonia, myocardial infarction, costochondritis,) Admission/Observation Consideration of admission/observation: Escalation of care including admission/observation considered Lab Data [facility] Lab Attestation statement: I reviewed the patient's lab results. 12/15/23 20:17 12/15/23 20:17 Labs: Lab Results 12/15/23 12/15/23 Range/Units 20:17 23:01 WBC 9.8 (4.8-10.8) X10*3/uL RBC 4.95 (4.60-5.80) X10*6/uL Hgb 13.2 L (14.0-18.0) g/dl Hct 40.6 L (42.0-52.0) % MCV 82.0 (80.0-98.0) fL MCH 26.7 L (27.0-33.0) pg MCHC 32.5 (31.0-36.0) g/dl RDW 13.8 (11.0-16.0) % Plt Count 309 (160-400) X10*3/uL MPV 9.6 (9.4-12.4) fL Immature Gran % (Auto) 0.9 H (0.0-0.4) % Neut % (Auto) 51.0 (45-73) % Lymph % (Auto) 33.3 (20-40) % Navarro % (Auto) 9.8 (2-11) % Eos % (Auto) 4.0 (0-4) % Baso % (Auto) 1.0 (0-2) % Lymph # (Auto) 3.3 (1.2-4.9) X10*3/uL Navarro # (Auto) 1.0 (0.1-1.2) X10*3/uL Eos # (Auto) 0.4 (0.0-0.4) X10*3/uL Baso # (Auto) 0.1 (0.0-0.2) X10*3/uL Abs Immat Gran (auto) 0.09 H (0.00-0.03) X10*3/uL Absolute Neuts (auto) 5.0 (2.0-8.3) x10*3/uL Absolute Nucleated RBC 0.000 (0.0-0.012) X10*3/uL Nucleated RBC % (auto) 0.0 (0.0-0.2) /100WBC Sodium 141 (135-145) mmol/L Potassium 4.0 (3.3-5.1) mmol/L Chloride 108 (96-108) mmol/L Carbon Dioxide 26 (22-29) mmol/L Anion Gap 11 L (12-20) BUN 16 (9-16) mg/dL Creatinine 0.79 (0.5-1.4) mg/dL Estim Creat Clear Calc 186.2 Estimated GFR > 60 Random Glucose 104 (60-115) mg/dL Calcium 9.2 (8.4-10.2) mg/dL Total Bilirubin 0.2 (0.0-1.0) mg/dL AST 25 (5-37) U/L ALT 24 (0-40) U/L Alkaline Phosphatase 104 (39-117) U/L Troponin I High Sens < 2.7 < 2.7 (<3.5-35.0) ng/L Total Protein 7.8 (6.5-8.0) g/dL Albumin 4.1 (3.5-5.0) g/dL COVID-19 (YUE) Negative (Negative) COVID-19 Clin Com See Note Influenza Type A (MANDA) Negative (Negative) Influenza Type B (MANDA) Negative (Negative) Influenza A & B Note See Note Independent Interpretation I performed an independent interpretation of an: EKG (Normal sinus rhythm. Negative STEMI) and Plain X-Ray Radiology Impression Discussion of test interpretation with radiology: I have reviewed the radiologist's reading. External Record Review External record reviewed: Other (PRior visits) Prescription Management I considered prescription management with: Antibiotic Discharge Plan Discharge Clinical Impression: Community acquired pneumonia Patient Disposition: Home, Self-Care Instructions: Chest Pain (ED), Community Acquired Pneumonia (DC) Additional Instructions: Recommend follow-up with primary care provider. Return to the ED immediately for any chest pain, shortness of breath, coughing up blood, leg swelling, calf pain, weakness, fever, chills, or any other concerning symptoms. Prescriptions: New amoxicillin 500 mg capsule 1,000 mg PO TID 5 Days Qty: 30 0RF doxycycline hyclate 100 mg capsule 100 mg PO BID 7 Days Qty: 14 0RF No Action ondansetron 4 mg tablet,disintegrating 4 mg PO Q8H PRN (Reason: nausea and vomiting) Qty: 20 0RF doxycycline hyclate 100 mg tablet 100 mg PO BID Qty: 20 0RF Stand Alone Forms: Work/School Release Print Language: Portuguese
[2023-12-15 23:32] LABS: Troponin-I High Sensitivity < 2.7 ng/L (<3.5-35.0)
--- NOTE | 2023-12-16 00:08 | PC.NURSE ---
pt reports cp resolved pt admits being homeless and needing warm place. axox4. nad. 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 nsr on ekg. pt resting comfortably in stretcher.
[2023-12-16 01:06] VITALS: BP 133/60; PULSE 78; RESP 19; TEMP 36.4; O2SAT 98
== END 2023-12-16 06:30 | disposition home or self-care (01) ==
PROVIDERS: Physician Assistant; Emergency Provider Internal Medicine; PCP Internal Medicine
DX: J18.9 Pneumonia, unspecified organism (principal); R05.9 Cough, unspecified; R07.9 Chest pain, unspecified
CPT/HCPCS: 36415; 71045; 80053; 84484; 85025; 87502; 87635; 93005; 99283; 99285

== ENCOUNTER → 2023-12-15 18:35 | Outpatient (BNV) | payer OTHER, SELFPAY | PROVIDERS: Emergency Provider Internal Medicine; PCP Internal Medicine; Visit Provider Internal Medicine | DX: R07.9 Chest pain, unspecified (principal) | CPT/HCPCS: 93010 ==

== ENCOUNTER 2023-12-16 22:15 | Emergency (ER) | payer OTHER, SELFPAY ==
[2023-12-16 23:04] VITALS: BP 152/83; PULSE 105; RESP 20; TEMP 36.5; O2SAT 97; BMI 43.1
--- NOTE | 2023-12-17 01:53 | PC.NURSE ---
pt has been sleeping in the waiting room. pt states he had 3 milk shakes and felt abd discomfort, then while pt was in the waiting room he went to the bathroom and all symptoms resolved. pt is homeless and just wants to wait in the waiting room. skin pink warm and dry no s/s of distress. pt has been here for the same reason mult times for homelessness.
== END 2023-12-17 02:03 | disposition left against medical advice (07) ==
PROVIDERS: Emergency Provider Emergency Medicine; PCP Internal Medicine
DX: K59.00 Constipation, unspecified (principal); Z59.02 Unsheltered homelessness
CPT/HCPCS: 99281

== ENCOUNTER 2023-12-19 01:40 | Emergency (ER) | payer OTHER, SELFPAY ==
[2023-12-19 01:51] VITALS: BP 143/80; PULSE 101; RESP 18; TEMP 36.4; O2SAT 97; BMI 40.7
--- NOTE | 2023-12-19 05:11 | ED.EXTPRO ---
HPI - Extremity Problem General Chief complaint: Extremity Injury, Lower Stated complaint: gen med Time Seen by Provider: 12/19/23 05:11 Source: patient Mode of arrival: ambulatory Limitations: no limitations History of Present Illness HPI Narrative: Patient homeless complaining of foot pain going on for long time as he stands all the time no trauma after arrival patient has been sleeping Related Data Previous Rx's Medication Instructions Recorded doxycycline hyclate 100 mg tablet 100 mg PO BID #20 tabs 10/30/23 ondansetron 4 mg disintegrating 4 mg PO Q8H PRN nausea and 10/30/23 tablet vomiting #20 tabs amoxicillin 500 mg capsule 1,000 mg (2 x 500 mg) PO TID 5 12/16/23 days #30 caps doxycycline hyclate 100 mg capsule 100 mg PO BID 7 days #14 caps 12/16/23 Allergies Allergy/AdvReac Type Severity Reaction Status Date / Time No Known Allergies Allergy Verified 12/19/23 01:51 Review of Systems Review of Systems: Yes all other systems are reviewed and are negative [facility] Past Medical History Medical History Chronic back pain Social History Social History Alcohol intake: current Alcohol intake frequency: does not drink Alcohol type: beer and hard liquor Substance Use Type: Marijuana Advance Directives: No Advance Directives Information Provided: No Physical Exam Vital Signs: Vital Signs: Last Vital Signs Temp 98.3 F 12/19/23 05:54 Pulse 87 12/19/23 05:54 Resp 17 12/19/23 05:54 BP 145/74 H 12/19/23 05:54 Pulse Ox 97 12/19/23 05:54 O2 Del Method Room Air 12/19/23 05:54 BMI result Body Mass Index 40.7 Appearance: Alert. Oriented X3. No acute distress. ENT: Pharynx normal. Oral Mucosa moist Neck: Normal inspection. Neck supple. CVS: Normal heart rate and rhythm. Pulses normal. Respiratory: No respiratory distress. Equal air entry bilateral, no wheezing/rales/rhonchi Abdomen: Soft and nontender. Bowel sounds are present, Skin: Skin warm and dry. Normal skin color. Normal skin turgor. Extremities: No lower extremity edema. No calf tenderness Neuro: Oriented X 3. Medical Decision Making Medical Decision Making MDM Narrative: Patient with chronic foot pain secondary to standing for an hours will discharge patient home no open wound no signs of infection Discharge Plan Discharge Clinical Impression: Chronic foot pain Patient Disposition: Home, Self-Care Instructions: Chronic Pain (ED) Additional Instructions: Rest avoid standing for long hours Prescriptions: No Action amoxicillin 500 mg capsule 1,000 mg PO TID 5 Days Qty: 30 0RF doxycycline hyclate 100 mg capsule 100 mg PO BID 7 Days Qty: 14 0RF ondansetron 4 mg tablet,disintegrating 4 mg PO Q8H PRN (Reason: nausea and vomiting) Qty: 20 0RF doxycycline hyclate 100 mg tablet 100 mg PO BID Qty: 20 0RF
[2023-12-19 05:54] VITALS: BP 145/74; PULSE 87; RESP 17; TEMP 36.8; O2SAT 97
== END 2023-12-19 06:45 | disposition home or self-care (01) ==
PROVIDERS: Emergency Provider Internal Medicine
DX: G89.29 Other chronic pain (principal); M79.673 Pain in unspecified foot; Z59.00 Homelessness unspecified
CPT/HCPCS: 99281; 99282; 99284

== ENCOUNTER 2023-12-19 23:16 | Emergency (ER) | payer OTHER, SELFPAY ==
[2023-12-19 23:18] VITALS: BP 160/83; PULSE 108; RESP 18; TEMP 36.4; O2SAT 97; BMI 42.0
[2023-12-20] MEDS: Acetaminophen 325 MG TABLET 975 MG PO (01:02)
[2023-12-20] MEDS: Ibuprofen 600 MG TABLET PO (01:02)
[2023-12-20 01:03] VITALS: BP 158/84; PULSE 98; RESP 18; TEMP 36.7; O2SAT 98
--- NOTE | 2023-12-20 01:03 | ED.GENADULT ---
HPI - General Adult General Chief complaint: Back Pain/Injury Stated complaint: gen med Time Seen by Provider: 12/20/23 00:58 Source: patient, RN notes reviewed and old records reviewed Mode of arrival: ambulatory Limitations: no limitations History of Present Illness HPI narrative: 23-year-old male presents for evaluation of low back pain. Patient reports his pain started today ?after walking all day. ? He denies any falls, trauma Denies any weakness, numbness, tingling No other complaints or concerns at this time Related Data Previous Rx's Medication Instructions Recorded doxycycline hyclate 100 mg tablet 100 mg PO BID #20 tabs 10/30/23 ondansetron 4 mg disintegrating 4 mg PO Q8H PRN nausea and 10/30/23 tablet vomiting #20 tabs amoxicillin 500 mg capsule 1,000 mg (2 x 500 mg) PO TID 5 12/16/23 days #30 caps doxycycline hyclate 100 mg capsule 100 mg PO BID 7 days #14 caps 12/16/23 Allergies Allergy/AdvReac Type Severity Reaction Status Date / Time No Known Allergies Allergy Verified 12/19/23 23:21 Review of Systems Constitutional: Constitutional: Denies chills, Denies fever(s) and Denies weakness Cardiovascular: Cardiovascular: Denies chest pain and Denies dyspnea Respiratory: Respiratory: Denies cough and Denies dyspnea Gastrointestinal: Gastrointestinal: Denies abdominal pain Musculoskeletal: Musculoskeletal: Reports back pain and Denies tingling Integumentary/Breasts: Skin/Breast: Denies rash Neurologic: Denies tingling, Denies paresthesias, Denies tremor(s) and Denies weakness [facility] Past Medical History Medical History Chronic back pain Social History Social History Alcohol intake: current Alcohol intake frequency: does not drink Alcohol type: beer and hard liquor Substance Use Type: Marijuana Advance Directives: No Advance Directives Information Provided: No Physical Exam ED Vital Signs: Vital Signs - 24 hr 12/19/23 23:18 12/20/23 01:03 Temperature 97.5 F 98.1 F Pulse Rate 108 H 98 Respiratory Rate 18 18 Blood Pressure 160/83 H 158/84 H Pulse Oximetry 97 98 Oxygen Delivery Method Room Air Room Air BMI result Body Mass Index 42.0 Const General: healthy appearing, comfortable, no acute distress, alert and awake Nutritional Appearance: well nourished Orientation/consciousness: patient oriented x3 HENMT Head: Yes normocephalic and Yes atraumatic Eyes Eyelids: Yes eyelids normal Conjunctivae: conjunctivae normal Sclerae: sclerae normal Corneas: corneas normal Pupils: Equal, round and reactive pupils present EOM: EOMs intact bilaterally Neck Neck: Yes full ROM Resp Effort & Inspection: normal respiratory effort, able to speak in complete sentences and not labored Back/Spine/Pelvis Other: Patient has vague tenderness across the lumbar region, no focal vertebral tenderness, no step-off deformities. Negative straight leg raise. Skin General skin exam: elasticity normal Neuro General: patient oriented x3 Cranial nerves: Yes Equal, round and reactive pupils present and Yes Bilaterally intact EOM present Cognition (Neuro): normal cognition Motor exam (neuro): 5/5 motor strength present throughout Extrem Other: Moving all extremities well without any obvious deformities Medications Administered Discontinued Medications Generic Name Dose Route Start Last Admin Trade Name Jaydenq PRN Reason Stop Dose Admin Acetaminophen 975 mg 12/20/23 00:59 12/20/23 01:02 Acetaminophen 325 Mg Tablet PO 12/20/23 01:00 975 mg ONCE ONE Administration Ibuprofen 600 mg 12/20/23 00:59 12/20/23 01:02 Ibuprofen 600 Mg Tablet PO 12/20/23 01:00 600 mg ONCE ONE Administration Medical Decision Making Medical Decision Making [facility] Narrative: 23-year-old male presents for evaluation of low back pain that started today, he has no weakness, numbness, tingling. No trauma, I do not see any indication for emergent imaging at this time. Will treat the patient's symptoms with ibuprofen. He is medically cleared for discharge Differential Diagnosis Differential Diagnoses: The differential diagnosis associated with the presentation includes Acute low back pain Muscle strain Contusion Radiculopathy Discharge Plan Discharge Clinical Impression: Low back pain Patient Disposition: Home, Self-Care Instructions: Acute Low Back Pain (ED) Additional Instructions: Use ibuprofen/Tylenol for pain You may use warm compresses to help with your symptoms Follow-up with your primary doctor Prescriptions: No Action amoxicillin 500 mg capsule 1,000 mg PO TID 5 Days Qty: 30 0RF doxycycline hyclate 100 mg capsule 100 mg PO BID 7 Days Qty: 14 0RF ondansetron 4 mg tablet,disintegrating 4 mg PO Q8H PRN (Reason: nausea and vomiting) Qty: 20 0RF doxycycline hyclate 100 mg tablet 100 mg PO BID Qty: 20 0RF
== END 2023-12-20 01:08 | disposition home or self-care (01) ==
PROVIDERS: Emergency Provider Internal Medicine
DX: M54.50 Low back pain, unspecified (principal)
CPT/HCPCS: 99283

== ENCOUNTER 2023-12-20 23:53 | Emergency (ER) | payer OTHER, SELFPAY ==
--- NOTE | ~2023-12-20 | CT_ITS ---
EXAMINATION: CT HEAD WITHOUT CONTRAST CLINICAL INFORMATION: Injury and headache COMPARISON: None available. TECHNIQUE: Contiguous axial imaging was performed from the skull base to vertex without intravenous administration of contrast. This CT examination was performed using dose optimization techniques as appropriate, variously including the following: *Automated exposure control *Adjustment of mA and/or kV according to patient size (this includes techniques or standardized protocols for targeted exams where dose is matched to indication/reason for exam; i.e. extremities or head) *Use of iterative reconstruction technique DLP: 786 mGy-cm FINDINGS: There is no evidence of acute intracranial hemorrhage or territorial infarction. No abnormal mass-effect or midline shift is seen. [place] to white matter differentiation is well preserved. No extra-axial fluid collections are identified. The ventricles are normal in size. There is no abnormal attenuation within the brain parenchyma. The osseous structures and soft tissues are normal. The mastoid air cells and visualized portions of the paranasal sinuses are well-aerated. CT/CT head/brain wo IV con IMPRESSION: No acute intracranial pathology.
[2023-12-21 00:01] VITALS: BP 146/84; PULSE 101; RESP 16; TEMP 36.5; O2SAT 96; BMI 43.9
--- NOTE | 2023-12-21 01:23 | ED.HEATRA ---
HPI - Head Injury General Chief complaint: Head Injury Stated complaint: Head injury Time Seen by Provider: 12/21/23 01:15 Source: patient Mode of arrival: ambulatory Limitations: no limitations History of Present Illness HPI Narrative: 23-year-old male otherwise healthy came in for evaluation after head injury. Patient was playing basketball at known time yesterday slipped and fell backward hit the back of his head, no LOC, no AC therapy, patient is also complaining of low back pain patient was seen yesterday for low back pain. Related Data Previous Rx's Medication Instructions Recorded doxycycline hyclate 100 mg tablet 100 mg PO BID #20 tabs 10/30/23 ondansetron 4 mg disintegrating 4 mg PO Q8H PRN nausea and 10/30/23 tablet vomiting #20 tabs amoxicillin 500 mg capsule 1,000 mg (2 x 500 mg) PO TID 5 12/16/23 days #30 caps doxycycline hyclate 100 mg capsule 100 mg PO BID 7 days #14 caps 12/16/23 Allergies Allergy/AdvReac Type Severity Reaction Status Date / Time No Known Allergies Allergy Verified 12/19/23 23:21 Review of Systems Review of Systems: All other systems are reviewed and are negative Constitutional: Reports as per HPI and Reports no additional constitutional complaints Eyes: Reports as per HPI and Reports no additional eye complaints Reports system reviewed and no additional complaints, except as documented Cardiovascular: Reports as per HPI and Reports no additional cardiovascular complaints Respiratory: Reports as per HPI and Reports no additional respiratory complaints Gastrointestinal: Reports as per HPI and Reports no additional gastrointestinal complaints Genitourinary: Reports no additional female genitourinary complaints Musculoskeletal: Reports no additional musculoskeletal complaints Skin/Breast: Reports system reviewed and no additional complaints, except as docu Psychiatric: Reports no additional psychiatric complaints Endocrine: Reports no additional endocrine complaints Hematologic/Lymphatic: Reports no additional hematologic/lymphatic complaints Allergic/Immunologic: Reports no additional allergic/immunologic complaints Reports system reviewed and no additional complaints, except as documented and Reports Abnormal speech present [facility] Past Medical History Medical History Chronic back pain Social History Social History Alcohol intake: current Alcohol intake frequency: does not drink Alcohol type: beer and hard liquor Substance Use Type: Marijuana Physical Exam Vital Signs: Vital Signs: Last Vital Signs Temp 97.7 F 12/21/23 00:01 Pulse 101 H 12/21/23 00:01 Resp 16 12/21/23 00:01 BP 146/84 H 12/21/23 00:01 Pulse Ox 96 12/21/23 00:01 O2 Del Method Room Air 12/21/23 00:01 BMI result Body Mass Index 43.9 Vital signs have been reviewed and appear to be correct. Blood pressure elevated. Heart rate normal. Respiratory rate normal. Temperature normal. Oxygen saturation normal. Appearance: Alert. Oriented X3. No acute distress. Head: Normal external exam. Normocephalic. Atraumatic. No Platt signs noted. No raccoon eyes noted Eyes: PERRLA. EOMI. Conjunctiva and sclera normal. Eyelids normal. ENT: TM's Normal. Pharynx normal. Uvula midline. Moist mucous membranes. No trismus noted. No drooling noted. No muffled voice noted. Neck: Normal inspection. Neck supple. FROM. No adenopathy. Thyroid Normal. No meningeal signs. No neck mass noted. CVS: Normal heart rate and rhythm. Heart sound normal. No murmurs noted. Pulses normal throughout. Respiratory: No respiratory distress. Painless inspiration. Breath sounds normal. No wheezes/rales/rhonchi noted. Chest nontender. No accessory muscle usage noted or decreased air movement noted. Abdomen: Soft and nontender. Bowel sounds normal in all 4 quadrants. No distention noted. No organomegaly noted. No visible injury noted. Back: No CVA tenderness. Full range of motion noted. Skin: Skin warm and dry. Normal skin color. Normal skin turgor. No rashes/lesions/lacerations noted. Extremities: No lower extremity edema. Extremities exhibit normal range of motion. Extremities nontender. Neuro: Oriented X 3, GCS of 15. Cranial nerve exam: II-XII are grossly intact No motor deficit. No sensory deficit. Reflexes normal. Course Reevaluation(s) Reevaluation #1: S/p mechanical fall with head injury, GCS of 15, normal neuro exam, negative head CT. Time: 01:26 Medical Decision Making Differential Diagnosis Differential Diagnoses: The differential diagnosis associated with the presentation includes (Intracranial bleed, brain concussion, low back contusion.) Admission/Observation Consideration of admission/observation: Escalation of care including admission/observation considered Independent Interpretation I performed an independent interpretation of an: CT Scan (Head: No acute intracranial pathology.) Radiology Impression Discussion of test interpretation with radiology: I have reviewed the radiologist's reading. Discharge Plan Discharge Clinical Impression: Closed head injury, Back contusion Patient Disposition: Home, Self-Care Instructions: Head Injury (ED) Prescriptions: No Action amoxicillin 500 mg capsule 1,000 mg PO TID 5 Days Qty: 30 0RF doxycycline hyclate 100 mg capsule 100 mg PO BID 7 Days Qty: 14 0RF ondansetron 4 mg tablet,disintegrating 4 mg PO Q8H PRN (Reason: nausea and vomiting) Qty: 20 0RF doxycycline hyclate 100 mg tablet 100 mg PO BID Qty: 20 0RF
[2023-12-21 02:00] VITALS: RESP 16
== END 2023-12-21 04:00 | disposition home or self-care (01) ==
PROVIDERS: Emergency Provider Emergency Medicine; PCP Internal Medicine
DX: S09.90XA Unspecified injury of head, initial encounter (principal); S30.0XXA Contusion of lower back and pelvis, initial encounter; W01.0XXA Fall on same level from slipping, tripping and stumbling without subsequent striking against object, initial encounter; Y93.67 Activity, basketball; Y92.9 Unspecified place or not applicable; Y99.9 Unspecified external cause status
CPT/HCPCS: 70450; 99284

== ENCOUNTER 2024-01-03 00:18 | Emergency (ER) | payer OTHER, SELFPAY ==
[2024-01-03 00:20] VITALS: BP 152/92; PULSE 112; RESP 18; TEMP 37; O2SAT 97; BMI 43.3
--- NOTE | 2024-01-03 00:28 | ED_ITS ---
HPI - General Adult General Chief complaint: General Medical Stated complaint: Gen med Time Seen by Provider: 01/03/24 00:28 Source: patient Mode of arrival: ambulatory Limitations: no limitations History of Present Illness HPI narrative: 23-year-old male hx of obesity, homelessness presents with complaints of hard and yellow skin to bilateral feet and peeling between toes. He also reports at times in between his toes he has itchiness. Reports this has been ongoing for the past few days. Is currently homeless and has been in wet socks often. Also reporting photosensitivity that has been ongoing for months ( not happening now). Has not yet seen his PCP for this. No headache, visual disturbances or weakness. Also denies trauma. Denies fevers, chills, neck pain, chest pain, shortness of breath, nausea, vomiting, abdominal pain, vision changes, weakness, URI sx Related Data Previous Rx's Medication Instructions Recorded doxycycline hyclate 100 mg tablet 100 mg PO BID #20 tabs 10/30/23 ondansetron 4 mg disintegrating 4 mg PO Q8H PRN nausea and 10/30/23 tablet vomiting #20 tabs amoxicillin 500 mg capsule 1,000 mg (2 x 500 mg) PO TID 5 12/16/23 days #30 caps doxycycline hyclate 100 mg capsule 100 mg PO BID 7 days #14 caps 12/16/23 clotrimazole 1 % topical cream 1 appl topical BID 21 days #45 01/03/24 (Lotrimin AF (clotrimazole)) grams Allergies Allergy/AdvReac Type Severity Reaction Status Date / Time No Known Allergies Allergy Verified 12/19/23 23:21 Review of Systems Review of Systems: Yes all other systems are reviewed and are negative PMFSH Past Medical History Attestation statement: The following information was validated with the patient. Source: old records reviewed and nursing notes reviewed Medical History Chronic back pain Social History Social History Alcohol intake: never Substance Use Type: Marijuana Physical Exam ED Vital Signs: Vital Signs - 24 hr 01/03/24 00:20 Temperature 98.6 F Pulse Rate 112 H Respiratory Rate 18 Blood Pressure 152/92 H Pulse Oximetry 97 Oxygen Delivery Method Room Air BMI result Body Mass Index 43.3 vss Appearance: Alert.? Oriented X3.? No acute distress.?+ anxiety noted on exam Head: Normocephalic, atraumatic, no step-offs or deformities Eyes: Pupils equal, round and reactive to light.? ENT: Pharynx normal.? Neck: Normal inspection.? Neck supple.? CVS: Normal heart rate and rhythm.? Pulses normal.? Respiratory: No respiratory distress.? Breath sounds normal.? Abdomen: Soft and nontender.? Skin: Skin warm and dry.? Normal skin color.? Normal skin turgor.? Extremities: No lower extremity edema.? No calf ttp. 5/5 strength to bilateral upper and lower extremities + b/l calluses ( rough thick skin overlying areas of high friction) to the plantar part of foot ( ball) w/ peeling between toes ? athletes foot. Back: No midline tenderness, no C-spine tenderness, full range of motion, no CVA tenderness bilaterally Neuro: Oriented X 3.? No motor deficit.? No sensory deficit. CN 2-12 intact [id number], [id number] steady tandem gait normal coordination. NIH stroke scale 0 Medical Decision Making Medical Decision Making MDM Narrative: 23-year-old male presents with bilateral foot discomfort, hard and yellow skin to bilateral feet and peeling between his toes ongoing for the past few days. Also reporting photosensitivity that has been ongoing for months. Has not yet seen his PCP for this. No headache, visual disturbances or weakness. Also denies trauma PE- + b/l calluses ( rough thick skin overlying areas of high friction) to the plantar part of foot ( ball) w/ peeling between toes ? athletes foot. Neurological assessment nonfocal History and physical exam concerning for calluses to bilateral feet, no signs of acute infection or abscess. Also concerning for athlete's foot. Photosensitivity ongoing for months, unlikely acute stroke, intracranial hemorrhage, acute migraine. Atraumatic unlikely traumatic injury to head, neck. Could be a form of migraine/headache. I do not suspect giant cell arteritis, wet macular degeneration or acute closed angle glaucoma NIH stroke scale 0, neuro nonfocal, no indication for head CT as neurological assessment is normal there has no associated trauma Plan will discharge patient home with clotrimazole cream and podiatry follow-up. Differential Diagnosis Differential Diagnoses: The differential diagnosis associated with the presentation includes History and physical exam concerning for calluses to bilateral feet, no signs of acute infection or abscess. Also concerning for athlete's foot. Photosensitivity ongoing for months, unlikely acute stroke, intracranial hemorrhage, acute migraine. Atraumatic unlikely traumatic injury to head, neck. Could be a form of migraine/headache.I do not suspect giant cell arteritis, wet macular degeneration or acute closed angle glaucoma Admission/Observation Consideration of admission/observation: Escalation of care including admission/observation considered Un likley Tests considered The following testing was considered but not selected: NIH stroke scale 0, neuro nonfocal, no indication for head CT as neurological assessment is normal there has no associated trauma Critical Care Time Critical Care Time Critical Care Time: No Discharge Plan Discharge Clinical Impression: Athlete's foot, Callus, Photosensitivity Patient Disposition: Home, Self-Care Instructions: Athlete's Foot (ED), Skin Yeast Infection (ED), Photosensitivity (ED) Additional Instructions: Take your medications as prescribed. If you were prescribed antibiotics today, it is important that you take your medication to their entirety, do not skip any doses, do not finish them early. Follow-up with your primary care provider this week. Return to the emergency department with new or worsening symptoms. Such as fevers, chills, chest pain, shortness of breath, nausea, vomiting, dizziness, headache, vision changes, lethargy In case of emergency call 911 Please ensure that after you wet your feet you dry them well particularly between the web spaces. You can also use foot powder for athletes foot. Follow-up with your primary care provider or Neurology for photosensitivity/sensitivity to light Follow-up with podiatry for your foot issues Call [facility] to schedule an apt. [address] [facility] [id number] Prescriptions: New clotrimazole [Lotrimin AF (clotrimazole)] 1 % cream 1 appl topical BID 21 Days Qty: 45 0RF No Action amoxicillin 500 mg capsule 1,000 mg PO TID 5 Days Qty: 30 0RF doxycycline hyclate 100 mg capsule 100 mg PO BID 7 Days Qty: 14 0RF ondansetron 4 mg tablet,disintegrating 4 mg PO Q8H PRN (Reason: nausea and vomiting) Qty: 20 0RF doxycycline hyclate 100 mg tablet 100 mg PO BID Qty: 20 0RF
--- NOTE | 2024-01-03 00:55 | PC.NURSE ---
pt a&o, no sob or chest pain, pt able to ambulate, provider into assess pt, pt given clean sock upon discharge, reviewed discharge instructions with pt, pt verbalized understanding.
[2024-01-03 00:56] VITALS: BP 143/81; PULSE 105; RESP 18; TEMP 36.1; O2SAT 98
== END 2024-01-03 00:57 | disposition home or self-care (01) ==
PROVIDERS: Emergency Provider Student in an Organized Health Care Education/Training Program
DX: B35.3 Tinea pedis (principal); L84 Corns and callosities; L56.8 Other specified acute skin changes due to ultraviolet radiation
CPT/HCPCS: 99283; 99284

== ENCOUNTER 2024-04-09 00:46 | Emergency (ER) | payer OTHER, SELFPAY ==
[2024-04-09 00:55] VITALS: BP 133/83; PULSE 115; RESP 18; TEMP 36.9; O2SAT 95; BMI 42.4
[2024-04-09 01:33] VITALS: BP 136/88; PULSE 116; RESP 16; TEMP 36.6; O2SAT 96
--- NOTE | 2024-04-09 01:42 | ED_ITS ---
HPI - Skin/Abscess/Foreign Bdy General Chief complaint: Skin/Abscess/Foreign Body Stated complaint: abscess, insomina Time Seen by Provider: 04/09/24 01:40 Source: patient Mode of arrival: ambulatory Limitations: no limitations History of Present Illness ED Provider: chey ROCK narrative: Patient has been right gluteal abscess for last 10 days got worse in last 2- 3 days having some pus discharge no fever no chills Related Data Previous Rx's ?Medication ?Instructions ?Recorded doxycycline hyclate 100 mg tablet 100 mg PO BID #20 tabs 10/30/23 ondansetron 4 mg disintegrating 4 mg PO Q8H PRN nausea and 10/30/23 tablet vomiting #20 tabs amoxicillin 500 mg capsule 1,000 mg (2 x 500 mg) PO TID 5 12/16/23 days #30 caps doxycycline hyclate 100 mg capsule 100 mg PO BID 7 days #14 caps 12/16/23 clotrimazole 1 % topical cream 1 appl topical BID 21 days #45 01/03/24 (Lotrimin AF (clotrimazole)) grams cephalexin 500 mg capsule 500 mg PO QID 10 days #40 caps 04/09/24 doxycycline hyclate 100 mg tablet 100 mg PO BID #20 tabs 04/09/24 ibuprofen 600 mg tablet 600 mg PO Q6H PRN fever or pain 04/09/24 #30 tabs Allergies Allergy/AdvReac Type Severity Reaction Status Date / Time No Known Allergies Allergy Verified 04/09/24 00:56 Review of Systems 2 Review of Systems: Yes all other systems are reviewed and are negative PMFSH Past Medical History Medical History Chronic back pain Social History Social History Alcohol intake: never Substance Use Type: Marijuana Advance Directives: No Advance Directives Information Provided: No Do you have a plan to hurt others: No Plan Physical Exam 2 Vital Signs: Vital Signs: Last Vital Signs Temp 97.8 F 04/09/24 01:33 Pulse 116 H 04/09/24 01:33 Resp 16 04/09/24 01:33 BP 136/88 04/09/24 01:33 Pulse Ox 96 06/26/24 01:33 O2 Del Method Room Air 06/26/24 01:33 BMI result Body Mass Index 42.4 Back/Spine/Pelvis: Back/spine/pelvis image: 1. Abscess 4 x 4 cm pointing Procedures Abscess I/D Site: romana-rectal (Right gluteus) Side (if applicable): right Local Anesthetic: lidocaine 1% Amount of anesthesia used (mL): 5 Technique: incised with blade Amount of fluid expressed (mL): 2 Sent for culture/gram staining?: No Irrigation: No Packing used?: iodoform Discharge Plan Discharge Clinical Impression: Abscess of skin or subcutaneous tissue Patient Disposition: Home, Self-Care Instructions: Abscess Incision and Drainage (DC) Additional Instructions: Local care as advised Remove packing in 2 days Take antibiotic as prescribed Prescriptions: New cephalexin 500 mg capsule 500 mg PO QID 10 Days Qty: 40 0RF ibuprofen 600 mg tablet 600 mg PO Q6H PRN (Reason: fever or pain) Qty: 30 0RF doxycycline hyclate 100 mg tablet 100 mg PO BID Qty: 20 0RF No Action amoxicillin 500 mg capsule 1,000 mg PO TID 5 Days Qty: 30 0RF doxycycline hyclate 100 mg capsule 100 mg PO BID 7 Days Qty: 14 0RF ondansetron 4 mg tablet,disintegrating 4 mg PO Q8H PRN (Reason: nausea and vomiting) Qty: 20 0RF doxycycline hyclate 100 mg tablet 100 mg PO BID Qty: 20 0RF clotrimazole [Lotrimin AF (clotrimazole)] 1 % cream 1 appl topical BID 21 Days Qty: 45 0RF Print Language: Georgian
[2024-04-09] MEDS: cephALEXin 500 MG CAPSULE PO (02:08)
[2024-04-09] MEDS: Doxycycline Monohydrate 100 MG CAPSULE PO (02:08)
[2024-04-09] MEDS: Lidocaine HCl 1 % MPF 5 ML VIAL INFILTRATI (02:08)
[2024-04-09 02:12] VITALS: BP 136/88; PULSE 116; RESP 16; TEMP 36.6; O2SAT 96
== END 2024-04-09 02:13 | disposition home or self-care (01) ==
PROVIDERS: Emergency Provider Internal Medicine
DX: L02.31 Cutaneous abscess of buttock (principal)
CPT/HCPCS: 10060; 99284

== ENCOUNTER 2024-04-22 06:40 | Emergency (ER) | payer OTHER, SELFPAY ==
[2024-04-22 07:07] VITALS: BP 133/79; PULSE 128; RESP 18; TEMP 37.6; O2SAT 96; BMI 43.7
[2024-04-22 08:59] VITALS: BP 141/75; PULSE 115; RESP 18; TEMP 36.3; O2SAT 97
[2024-04-22 09:03] LABS: Appearance Urine Turbid; Color Urine Yellow; Glucose Urine UA Negative (Negative); Leukocyte Esterase Urine Large (3+) (Negative); Nitrite Urine Negative (Negative); PH 6.5 (5.0-9.0); UMIC TRIGGER UACC YES; Urine Blood Trace (Negative); Urine Ketones Negative (Negative); Urine Protein Trace mg/dL (Neg-Trace)
[2024-04-22 09:08] LABS: Bacteria Urine None Seen (None Seen); Hyaline Casts Urine 0-2 /LPF (0-2); Squamous Epithelial Cell Urine 0-2 /HPF (0-2); UACC Culture Trigger YES; WBC Urine >50 /HPF (0-5)
--- NOTE | 2024-04-22 09:44 | ED.MALEGU ---
HPI - Male Genitourinary General Chief complaint: Urogenital-Male Stated complaint: Stopped breathing while sleeping Time Seen by Provider: 04/22/24 08:29 Source: patient Mode of arrival: ambulatory Limitations: no limitations History of Present Illness ED Provider: Dr. Webber HPI Narrative: Patient had unprotected sex about a week ago now with yellow drainage and dysuria Complaint: penile discharge and dysuria Onset (ago): day(s) Duration: intermittent Related Data Previous Rx's ?Medication ?Instructions ?Recorded doxycycline hyclate 100 mg tablet 100 mg PO BID #20 tabs 10/30/23 ondansetron 4 mg disintegrating 4 mg PO Q8H PRN nausea and 10/30/23 tablet vomiting #20 tabs amoxicillin 500 mg capsule 1,000 mg (2 x 500 mg) PO TID 5 12/16/23 days #30 caps doxycycline hyclate 100 mg capsule 100 mg PO BID 7 days #14 caps 12/16/23 clotrimazole 1 % topical cream 1 appl topical BID 21 days #45 01/03/24 (Lotrimin AF (clotrimazole)) grams cephalexin 500 mg capsule 500 mg PO QID 10 days #40 caps 04/09/24 doxycycline hyclate 100 mg tablet 100 mg PO BID #20 tabs 04/09/24 ibuprofen 600 mg tablet 600 mg PO Q6H PRN fever or pain 04/09/24 #30 tabs doxycycline monohydrate 100 mg 100 mg PO BID #20 caps 04/22/24 capsule Allergies Allergy/AdvReac Type Severity Reaction Status Date / Time No Known Allergies Allergy Verified 04/22/24 07:11 Review of Systems Review of Systems: Yes all other systems are reviewed and are negative Neurologic: Denies Sensory deficit (Neuro) [facility] Past Medical History Medical History Chronic back pain Social History Social History Alcohol intake: current Alcohol intake frequency: holidays/special occasions only Alcohol type: beer and hard liquor Substance Use Type: Marijuana Advance Directives: No Physical Exam Vital Signs: Vital Signs: Last Vital Signs Temp 97.3 F 04/22/24 08:59 Pulse 115 H 04/22/24 08:59 Resp 18 04/22/24 08:59 BP 141/75 H 04/22/24 08:59 Pulse Ox 97 04/22/24 08:59 O2 Del Method Room Air 04/22/24 08:59 BMI result Body Mass Index 43.7 Const: Nutritional Appearance: obese Orientation/consciousness: oriented to person and patient oriented x3 Limitations: no limitations HEENT: Head: Yes normal to inspection Ears: external ears normal General nose exam: Normal external nose present Mouth: Normal oral and palatal mucosa present and oropharynx normal Throat: Yes posterior oropharynx normal Eyes: General: appearance normal, both eyes and all related structures Neck: Other: supple Neck: Yes normal visual inspection Chest: Chest palpation & inspection: normal inspection of the chest Resp: Auscultation: clear to auscultation bilaterally Cardio: Jugular venous distension: no JVD Rate: regular rate Rhythm: regular rhythm Heart sounds: S1 normal heart sound present and S2 normal heart sound present GI: Inspection: Yes normal to inspection Palpation (GI): Soft to palpation, nontender and No hepatosplenomegaly present Auscultation: normal bowel sounds : Other: uncircumsized penis, slight drainage, not testicular pain or swelling Skin: General skin exam: no rashes or lesions noted Neuro: General: oriented to person and patient oriented x3 Cranial nerves: Yes CN's II-XII intact bilaterally Motor exam (neuro): 5/5 motor strength present throughout Sensory Exam: No Sensory deficit (Neuro) Extrem: General: Yes normal to inspection Psych: Appearance: grossly normal Course Reevaluation(s) Reevaluation #1: will treat for STD and discharge on doxycycline Time: 09:58 Medical Decision Making Lab Data Labs: Lab Results 04/22/24 Range/Units 08:56 Urine Color Yellow Urine Appearance Turbid Urine pH 6.5 (5.0-9.0) Ur Specific [place] 1.020 (1.005-1.025) Urine Protein Trace (Neg-Trace) mg/dL Urine Glucose (UA) Negative (Negative) mg/dL Urine Ketones Negative (Negative) mg/dL Urine Blood Trace H (Negative) Urine Nitrite Negative (Negative) Ur Leukocyte Esterase Large (3+) H (Negative) Urine RBC 3-5 H (0-2) /HPF Urine WBC >50 H (0-5) /HPF Ur Squamous Epith Cells 0-2 (0-2) /HPF Urine Bacteria None Seen (None Seen) Hyaline Casts 0-2 (0-2) /LPF Discharge Plan 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 Patient Disposition: Home, Self-Care Instructions: Male Condom Use (ED) Prescriptions: New doxycycline monohydrate 100 mg capsule 100 mg PO BID Qty: 20 0RF No Action amoxicillin 500 mg capsule 1,000 mg PO TID 5 Days Qty: 30 0RF doxycycline hyclate 100 mg capsule 100 mg PO BID 7 Days Qty: 14 0RF cephalexin 500 mg capsule 500 mg PO QID 10 Days Qty: 40 0RF ibuprofen 600 mg tablet 600 mg PO Q6H PRN (Reason: fever or pain) Qty: 30 0RF doxycycline hyclate 100 mg tablet 100 mg PO BID Qty: 20 0RF ondansetron 4 mg tablet,disintegrating 4 mg PO Q8H PRN (Reason: nausea and vomiting) Qty: 20 0RF doxycycline hyclate 100 mg tablet 100 mg PO BID Qty: 20 0RF clotrimazole [Lotrimin AF (clotrimazole)] 1 % cream 1 appl topical BID 21 Days Qty: 45 0RF Referrals: Radha Vela MD [Primary Care Provider] - 1 week Print Language: Luxembourgish
[2024-04-22] MEDS: Doxycycline Monohydrate 100 MG CAPSULE PO (10:28)
[2024-04-22] MEDS: cefTRIAXone sodium 500 MG VIAL IM (10:29)
[2024-04-22 10:32] VITALS: BP 141/75; PULSE 115; RESP 18; TEMP 36.3; O2SAT 97
[2024-04-22 11:10] LABS: CT PCR NOT DETECTED (Not Detect.); NG PCR DETECTED (Not Detect.)
== END 2024-04-22 10:33 | disposition home or self-care (01) ==
PROVIDERS: Emergency Provider Emergency Medicine; PCP Internal Medicine
DX: A64 Unspecified sexually transmitted disease (principal); R30.0 Dysuria; R36.9 Urethral discharge, unspecified
CPT/HCPCS: 81001; 81003; 87086; 87491; 87591; 96372; 99283; 99284; J0696

== ENCOUNTER 2024-05-19 10:10 | Emergency (ER) | payer OTHER, SELFPAY ==
--- NOTE | ~2024-05-19 | XR_ITS ---
EXAMINATION: XR CHEST CLINICAL INFORMATION: Pain, cough. COMPARISON: 12/15/2023 TECHNIQUE: 2 views of the chest were obtained. FINDINGS: Lung volumes are low. There is no pneumothorax. Heart size is normal. No pleural effusion. Previously identified slight indistinctness surrounding the right hilum is similar to decreased. No new focal consolidation. XR/XR chest 2V IMPRESSION: Previously identified slight indistinctness surrounding the right hilum is similar to decreased. No new focal consolidation. This study was presented today May 19, 2024 for interpretation. Stat results provided at this time as requested by referring provider.
--- NOTE | 2024-05-19 10:12 | ECG_ITS ---
Test Reason : CP Blood Pressure : / mmHG Vent. Rate : 108 BPM Atrial Rate : 108 BPM P-R Int : 144 ms QRS Dur : 078 ms QT Int : 330 ms P-R-T Axes : 023 073 018 degrees QTc Int : 442 ms Sinus tachycardia Otherwise normal ECG When compared with ECG of 15-DEC-2023 18:37, No significant change was found Referred By: Generic ED Physician Electronically Signed By:MINOR RAM MD
[2024-05-19 10:19] VITALS: BP 135/79; PULSE 106; RESP 17; TEMP 36.9; O2SAT 96; BMI 45.0
--- NOTE | 2024-05-19 11:01 | ED.CHESTPAIN ---
HPI - Chest Pain General Chief Complaint: Upper Respiratory Symptoms Stated Complaint: CP x2days, vomiting Time Seen by Provider: 05/19/24 10:27 History of Present Illness HPI narrative: 24 year old male with a history of Asthma presents today with chest pain for 2 days, vomiting and a cough that started yesterday. Patient states that about 2 days ago he began to have pain in the middle of his chest over the sternum and then last night the patient began to develop a cough and a subjective fever without measuring the temperature. He endorses shortness of breath, difficulty breathing and chest tightness stating he is gasping for air . He also endorses nausea and vomiting that started last night and states that he gets nauseous and vomits whenever he eats food. He denies any diarrhea or abdominal pain. Patient says he is a cigarette and vape smoker, as well as a marijuana smoker. States he stopped using marijuana last week, and that he has not smoked cigarettes or vape since chest pain started about 2 days ago. He denies any sick contacts or recent travel. He has not taken anything for the pain or difficulty breathing. He does not have an inhaler at home and is not on any medications. MD complaint: chest pain Pertinent past history: asthma Onset (ago): day(s) (2) Timing of current episode: constant Prior episodes: No Onset: during rest Pain location: substernal Pain radiation: none and right arm Severity: moderate Quality: tightness and sharp Relieving factors: nothing Exacerbating factors: inspiration and eating (exacerbates vomiting) Associated symptoms: nausea, vomiting, dyspnea, fever and cough Treatment prior to arrival: none Risk Factors Coronary artery disease risk factors: smoking history Thoracic aortic dissection risk factors: none Related Data Previous Rx's ?Medication ?Instructions ?Recorded doxycycline hyclate 100 mg tablet 100 mg PO BID #20 tabs 10/30/23 ondansetron 4 mg disintegrating 4 mg PO Q8H PRN nausea and 10/30/23 tablet vomiting #20 tabs amoxicillin 500 mg capsule 1,000 mg (2 x 500 mg) PO TID 5 12/16/23 days #30 caps doxycycline hyclate 100 mg capsule 100 mg PO BID 7 days #14 caps 12/16/23 clotrimazole 1 % topical cream 1 appl topical BID 21 days #45 01/03/24 (Lotrimin AF (clotrimazole)) grams cephalexin 500 mg capsule 500 mg PO QID 10 days #40 caps 04/09/24 doxycycline hyclate 100 mg tablet 100 mg PO BID #20 tabs 04/09/24 ibuprofen 600 mg tablet 600 mg PO Q6H PRN fever or pain 04/09/24 #30 tabs doxycycline monohydrate 100 mg 100 mg PO BID #20 caps 04/22/24 capsule naproxen 500 mg tablet 500 mg PO BID PRN pain #20 tabs 05/19/24 Allergies Allergy/AdvReac Type Severity Reaction Status Date / Time No Known Allergies Allergy Verified 05/19/24 10:23 Review of Systems Review of Systems: Yes all other systems are reviewed and are negative [facility] Past Medical History Medical History Chronic back pain Social History Social History Alcohol intake: current Alcohol intake frequency: holidays/special occasions only Alcohol type: beer and hard liquor Substance Use Type: Marijuana Advance Directives: No Advance Directives Information Provided: No Physical Exam Vital Signs: Vital Signs: Last Vital Signs Temp 97.0 F 05/19/24 12:20 Pulse 95 05/19/24 12:20 Resp 18 05/19/24 12:20 BP 157/71 H 05/19/24 12:20 Pulse Ox 95 05/19/24 12:20 O2 Del Method Room Air 05/19/24 12:20 BMI result Body Mass Index 45.0 Appearance: Alert. Oriented X3. Mild distress. Sleeping on arrival to room. Head: normocephalic, atraumatic. Eyes: Pupils equal, round and reactive to light. ENT: Pharynx normal. No tonsillar swelling or exudate. Neck: Normal inspection. Neck supple. CVS: Normal heart rate and rhythm. Pulses normal. Chest pain with palpation to sternum. Respiratory: No respiratory distress. Breath sounds normal, slight wheezing when coughing. Abdomen: Soft and nontender. +BS x4. Slight left upper quadrant pain, however is more so nausea pain according to patient. Skin: Skin warm and dry. Normal skin color. Normal skin turgor. No rashes. Extremities: No lower extremity edema. No joint swelling. Neuro/psych: Oriented X 3. No motor deficit. No sensory deficit. CN II-XII intact. Normal speech and cognition. Medical Decision Making Medical Decision Making [facility] Narrative: 24 year old male with a history of Asthma presents today with chest pain for 2 days, vomiting and a cough that started yesterday. Patient endorses cough and vomiting started last night as well as a mild fever, has had difficulty breathing and is short of breath. Nausea when eating foods and vomits the food, denies abdominal pain. Patient has not tested for any viral illnesses and denies any sick contacts. Likely viral illness or Upper respiratory virus, less likely a TN vs PE vs pneumothorax based on EKG and chest X-ray and physical exam. Asthma exacerbation possible since patient does not have inhaler, however he is not wheezy today. symptoms most likely secondary to viral or upper respiratory illness he is nontoxic appearing, breathing comfortably. HR 108 -> 90s without intervention. no fevers. lungs are clear. CXR without PNA. EKG without ischemic changes. sxs most likely viral. patient counseled on dx and tx, along w/ return precautions. stable for d/c home w/ supportive care Differential Diagnosis Differential Diagnoses: The differential diagnosis associated with the presentation includes Viral illness, Upper Respiratory Illness, Ashtma exacerabtion, TN, Pneumothorax, myocarditis, PE less likely Admission/Observation Consideration of admission/observation: Escalation of care including admission/observation considered Lab Data [facility] Lab Attestation statement: I reviewed the patient's lab results. Labs: Lab Results 05/19/24 Range/Units 10:44 COVID-19 ([facility]YE) Negative (Negative) COVID-19 Clin Com See Note Independent Interpretation I performed an independent interpretation of an: EKG and Plain X-Ray Interpretation: ekg w/ sinus tachycardia, hr 108, no st segment elevations or depressions, normal QTc CXR without focal consolidation, effusion or PTX Radiology Impression Discussion of test interpretation with radiology: I have reviewed the radiologist's reading. Radiologist Impression: EXAMINATION: XR CHEST CLINICAL INFORMATION: Pain, cough. COMPARISON: 12/15/2023 TECHNIQUE: 2 views of the chest were obtained. FINDINGS: Lung volumes are low. There is no pneumothorax. Heart size is normal. No pleural effusion. Previously identified slight indistinctness surrounding the right hilum is similar to decreased. No new focal consolidation. XR/XR chest 2V IMPRESSION: Previously identified slight indistinctness surrounding the right hilum is similar to decreased. No new focal consolidation. External Record Review External record reviewed: Prior outpatient labs Tests considered The following testing was considered but not selected: CTA chest considered, PE very low on the differential Prescription Management I considered prescription management with: Pain Medication and Antibiotic Critical Care Time Critical Care Time Critical Care Time: No Discharge Plan Discharge Clinical Impression: Viral infection, Acute costochondritis Patient Disposition: Home, Self-Care Instructions: Costochondritis (ED), Viral Syndrome (ED) Additional Instructions: You tested negative for COVID. Your EKG did not show any concerning changes to suggest cardiac cause of your chest pain. Your chest x-ray was clear. Your pain is most likely muscular. You most likely have a viral illness that is causing your symptoms. Treatment is rest and supportive care. Rest and drink plenty of fluids. Take the prescribed anti-inflammatory as needed for pain. Take [id number] cold and flu medications as needed for your other symptoms Follow-up with your doctor. If you develop new or worsening symptoms call 911 or come back to the ER for further evaluation. Prescriptions: New naproxen 500 mg tablet 500 mg PO BID PRN (Reason: pain) Qty: 20 0RF No Action amoxicillin 500 mg capsule 1,000 mg PO TID 5 Days Qty: 30 0RF doxycycline hyclate 100 mg capsule 100 mg PO BID 7 Days Qty: 14 0RF cephalexin 500 mg capsule 500 mg PO QID 10 Days Qty: 40 0RF ibuprofen 600 mg tablet 600 mg PO Q6H PRN (Reason: fever or pain) Qty: 30 0RF doxycycline hyclate 100 mg tablet 100 mg PO BID Qty: 20 0RF doxycycline monohydrate 100 mg capsule 100 mg PO BID Qty: 20 0RF ondansetron 4 mg tablet,disintegrating 4 mg PO Q8H PRN (Reason: nausea and vomiting) Qty: 20 0RF doxycycline hyclate 100 mg tablet 100 mg PO BID Qty: 20 0RF clotrimazole [Lotrimin AF (clotrimazole)] 1 % cream 1 appl topical BID 21 Days Qty: 45 0RF Referrals: Radha Vela MD [Primary Care Provider] - Stand Alone Forms: Work/School Release Interventions: ED Discharge Assessment Last Done: 05/19/24 12:20 Discharge Date/Time: 05/19/24 12:21 Print Language: Latvian
[2024-05-19 11:03] LABS: COVID-19 Test Negative (Negative); IDNOW Serial# 152EDE1D
[2024-05-19 12:01] VITALS: BP 157/71; PULSE 95; RESP 18; TEMP 36.1; O2SAT 95
[2024-05-19 12:20] VITALS: BP 157/71; PULSE 95; RESP 18; TEMP 36.1; O2SAT 95
== END 2024-05-19 12:21 | disposition home or self-care (01) ==
PROVIDERS: Physician Assistant; Emergency Provider Emergency Medicine; PCP Internal Medicine
DX: B34.9 Viral infection, unspecified (principal); R07.89 Other chest pain; R05.9 Cough, unspecified; R11.2 Nausea with vomiting, unspecified; M94.0 Chondrocostal junction syndrome [Tietze]; Z11.52 Encounter for screening for COVID-19; Z87.891 Personal history of nicotine dependence
CPT/HCPCS: 71046; 87635; 93005; 99283

== ENCOUNTER → 2024-05-19 10:12 | Outpatient (BNV) | payer OTHER, SELFPAY | PROVIDERS: Emergency Provider Emergency Medicine; PCP Internal Medicine; Visit Provider Internal Medicine Cardiovascular Disease | DX: R00.0 Tachycardia, unspecified (principal) | CPT/HCPCS: 93010 ==

== ENCOUNTER 2024-05-22 11:08 | Emergency (ER) | payer OTHER, SELFPAY ==
--- NOTE | ~2024-05-22 | XR_ITS ---
EXAMINATION: XR CHEST CLINICAL INFORMATION: Cough with sputum and chest pain COMPARISON: 12/15/2023 and 05/19/2024 TECHNIQUE: 2 views of the chest were obtained. FINDINGS: No significant abnormality is noted involving the heart, lungs, mediastinum, bony thorax or soft tissues. I suspect that the equivocal hazy opacities seen surrounding the right percy which is unchanged may not be a real finding. XR/XR chest 2V IMPRESSION: No acute intrathoracic disease.
--- NOTE | 2024-05-22 11:10 | ECG_ITS ---
Test Reason : cp Blood Pressure : / mmHG Vent. Rate : 098 BPM Atrial Rate : 098 BPM P-R Int : 152 ms QRS Dur : 086 ms QT Int : 346 ms P-R-T Axes : 024 068 025 degrees QTc Int : 441 ms Normal sinus rhythm Normal ECG When compared with ECG of 19-MAY-2024 10:11, No significant change was found Referred By: Generic ED Physician Electronically Signed By:MINOR RAM MD
[2024-05-22 11:41] VITALS: BP 147/81; PULSE 100; RESP 18; TEMP 36.8; O2SAT 97; BMI 44.2
--- NOTE | 2024-05-22 11:41 | ED.CHESTPAIN ---
HPI - Chest Pain General Chief Complaint: Upper Respiratory Symptoms Stated Complaint: chest pain Time Seen by Provider: 05/22/24 12:04 Source: patient Mode of arrival: ambulatory Limitations: no limitations History of Present Illness ED Provider: Eneida Rm PA-C HPI narrative: 24-year-old male presents back to the ER for evaluation of feeling unwell for the last week. He states he has chest discomfort and pain in the middle of his chest when he coughs. He has been dizzy, bringing up yellow phlegm, having body aches and headaches. He states he has vomited 3 times this week. He denies any abdominal pain. He has been having subjective fevers and chills. He was seen here in the ER 3 days ago where he had normal chest x-ray and unremarkable EKG. He reports ongoing chest discomfort with coughing, sore throat, headache and myalgias. No known sick contacts. MD complaint: chest pain and other (Cough, dizziness, vomiting, feeling unwell) Onset (ago): day(s) (5) Timing of current episode: constant Prior episodes: Yes Onset: other (with coughing) Pain location: substernal Pain radiation: none Severity: moderate Quality: aching and sharp Relieving factors: nothing Exacerbating factors: inspiration, palpation, movement and other (coughing) Context: recent illness Associated symptoms: nausea and vomiting Treatment prior to arrival: none Risk Factors Coronary artery disease risk factors: none Thoracic aortic dissection risk factors: none Related Data Previous Rx's ?Medication ?Instructions ?Recorded doxycycline hyclate 100 mg tablet 100 mg PO BID #20 tabs 10/30/23 ondansetron 4 mg disintegrating 4 mg PO Q8H PRN nausea and 10/30/23 tablet vomiting #20 tabs amoxicillin 500 mg capsule 1,000 mg (2 x 500 mg) PO TID 5 12/16/23 days #30 caps doxycycline hyclate 100 mg capsule 100 mg PO BID 7 days #14 caps 12/16/23 clotrimazole 1 % topical cream 1 appl topical BID 21 days #45 01/03/24 (Lotrimin AF (clotrimazole)) grams cephalexin 500 mg capsule 500 mg PO QID 10 days #40 caps 04/09/24 doxycycline hyclate 100 mg tablet 100 mg PO BID #20 tabs 04/09/24 ibuprofen 600 mg tablet 600 mg PO Q6H PRN fever or pain 04/09/24 #30 tabs doxycycline monohydrate 100 mg 100 mg PO BID #20 caps 04/22/24 capsule naproxen 500 mg tablet 500 mg PO BID PRN pain #20 tabs 05/19/24 amoxicillin 875 mg-potassium 1 tab PO BID #18 tabs 05/22/24 clavulanate 125 mg tablet ibuprofen 600 mg tablet 600 mg PO Q8H PRN fever or pain 05/22/24 #14 tabs Allergies Allergy/AdvReac Type Severity Reaction Status Date / Time No Known Allergies Allergy Verified 05/22/24 11:43 Review of Systems Review of Systems: Yes all other systems are reviewed and are negative [facility] Past Medical History Medical History Chronic back pain Social History Social History Alcohol intake: current Alcohol intake frequency: holidays/special occasions only Alcohol type: beer and hard liquor Substance Use Type: Marijuana Advance Directives: No Physical Exam Vital Signs: Vital Signs: Last Vital Signs Temp 98.2 F 05/22/24 11:41 Pulse 100 05/22/24 11:41 Resp 18 05/22/24 11:41 BP 147/81 H 05/22/24 11:41 Pulse Ox 97 05/22/24 11:41 O2 Del Method Room Air 05/22/24 11:41 BMI result Body Mass Index 44.2 Appearance: Alert. Oriented X3. No acute distress. Head: normocephalic, atraumatic. Eyes: Pupils equal, round and reactive to light. ENT: Pharynx with moderate generalized erythema, moist mucous membranes No tonsillar swelling or exudate. Uvula midline. Normal voice Neck: Normal inspection. Neck supple. CVS: Normal heart rate and rhythm. Pulses normal. Tender anterior chest wall Respiratory: No respiratory distress. Breath sounds normal. Abdomen: Soft and nontender. +BS x4 Skin: Skin warm and dry. Normal skin color. Normal skin turgor. No rashes. Extremities: No lower extremity edema. No joint swelling. Negative Homans sign Neuro/psych: Oriented X 3. No motor deficit. No sensory deficit. CN II-XII intact. Normal speech and cognition. Course Course Course Narrative: This is a Rapid Medical Examination (RME) performed by Kenzie Barrera PA-C in triage. Full HPI, ROS, assessment and treatment plan per primary provider in the Main ED. 24 yo hx of asthma here w/ chest pain, congestion, dizziness, cough productive of yellow/ green sputum x4 days. seen here sunday for same, d/c with naproxen for costochondritis. reports continued symptoms. hx of asthma, does not have inhaler at home. + rrr. lungs w/ expiratory wheezes b/l. Plan: labs, viral serology, cxr will need bronch protocol Medications Administered Discontinued Medications Generic Name Dose Route Start Last Admin Trade Name Freq PRN Reason Stop Dose Admin Sodium Chloride 1,000 mls @ 999 mls/hr 05/22/24 12:30 05/22/24 12:38 Ns IVCONT 05/22/24 13:30 999 mls/hr .Q1H1M CORNELIO Administration Ceftriaxone Sodium 1 gm/ 50 mls @ 100 mls/hr 05/22/24 13:18 05/22/24 14:00 Sodium Chloride IV 05/22/24 13:47 Infused ONCE ONE Infusion Ketorolac Tromethamine 15 mg 05/22/24 12:28 05/22/24 12:42 Ketorolac Tromethamine 15 Mg/Ml Vial IVPUSH 05/22/24 12:29 15 mg ONCE ONE Administration Ondansetron HCl 4 mg 05/22/24 12:28 05/22/24 12:42 Ondansetron Hcl 4 Mg/2 Ml Vial IVPUSH 05/22/24 12:29 4 mg ONCE ONE Administration Medical Decision Making Medical Decision Making [facility] Narrative: 24-year-old male presenting to the ER for 4-5 days of chest pain with coughing, productive cough of yellow phlegm, sore throat, dizziness, vomiting x3 and generally feeling unwell. Seen here recently, was negative for COVID, flu, RSV, had unremarkable EKG and was diagnosed with costochondritis and viral syndrome. He returns today with mild tachycardia, heart rate 100. He is afebrile. He is nontoxic appearing. His lungs are clear to auscultation. Chest x-ray was performed to rule out evolving pneumonia, it was clear without any evidence of infiltrate. His lab workup showed a mildly elevated white blood cell count of 11.9. His viral panel was again negative. His EKG did not have any ischemic changes. His Monospot was negative. He was found to have positive strep throat. He was given fluids, Toradol, Zofran, 1 dose of Rocephin with improvement in his symptoms. Low clinical suspicion for DVT/PE. He was counseled on his diagnosis and need for continuation of oral antibiotics to complete treatment. He expressed understanding and is stable for discharge home. Differential Diagnosis Differential Diagnoses: The differential diagnosis associated with the presentation includes COVID, flu, RSV, other viral process, pneumonia, strep throat, gastroenteritis, dehydration, low clinical suspicion for DVT Admission/Observation Consideration of admission/observation: Escalation of care including admission/observation considered Lab Data [facility]DM Lab Attestation statement: I reviewed the patient's lab results. Mild leukocytosis, mild normocytic anemia 05/22/24 12:36 05/22/24 12:36 Labs: Lab Results 05/22/24 05/22/24 Range/Units 12:36 12:47 WBC 11.9 H (4.8-10.8) X10*3/uL RBC 4.49 L (4.60-5.80) X10*6/uL Hgb 12.2 L (14.0-18.0) g/dl Hct 37.4 L (42.0-52.0) % MCV 83.3 (80.0-98.0) fL MCH 27.2 (27.0-33.0) pg MCHC 32.6 (31.0-36.0) g/dl RDW 14.6 (11.0-16.0) % Plt Count 312 (160-400) X10*3/uL MPV 9.5 (9.4-12.4) fL Immature Gran % (Auto) 0.9 H (0.0-0.4) % Neut % (Auto) 69.8 (45-73) % Lymph % (Auto) 17.3 L (20-40) % Stephenson % (Auto) 7.5 (2-11) % Eos % (Auto) 3.7 (0-4) % Baso % (Auto) 0.8 (0-2) % Lymph # (Auto) 2.1 (1.2-4.9) X10*3/uL Stephenson # (Auto) 0.9 (0.1-1.2) X10*3/uL Eos # (Auto) 0.4 (0.0-0.4) X10*3/uL Baso # (Auto) 0.1 (0.0-0.2) X10*3/uL Abs Immat Gran (auto) 0.11 H (0.00-0.03) X10*3/uL Absolute Neuts (auto) 8.3 (2.0-8.3) x10*3/uL Absolute Nucleated RBC 0.000 (0.0-0.012) X10*3/uL Nucleated RBC % (auto) 0.0 (0.0-0.2) /100WBC Sodium 138 (135-145) mmol/L Potassium 4.0 (3.3-5.1) mmol/L Chloride 104 (96-108) mmol/L Carbon Dioxide 27 (22-29) mmol/L Anion Gap 11 L (12-20) BUN 7 L (9-16) mg/dL Creatinine 0.82 (0.5-1.4) mg/dL Estim Creat Clear Calc 178.5 Estimated GFR > 60 Random Glucose 144 H (60-115) mg/dL Calcium 9.5 (8.4-10.2) mg/dL Magnesium 2.1 (1.6-2.6) mg/dL Total Bilirubin 0.2 (0.0-1.0) mg/dL AST 42 H (5-37) U/L ALT 40 (0-40) U/L Alkaline Phosphatase 85 (39-117) U/L Troponin I High Sens < 2.7 (<3.5-35.0) ng/L Total Protein 8.2 H (6.5-8.0) g/dL Albumin 4.0 (3.5-5.0) g/dL Monoscreen Negative (Negative) Influenza Type A (PCR) NEGATIVE (Negative) Influenza Type B (PCR) NEGATIVE (Negative) RSV RNA Qual (PCR) NEGATIVE (Negative) SARS-CoV-2 RNA (RT-PCR) NEGATIVE (Negative) S. pyogenes GrpA MANDA Positive A (Negative) Independent Interpretation I performed an independent interpretation of an: EKG and Plain X-Ray Interpretation: Chest x-ray is clear without any focal infiltrate or effusion EKG with normal sinus rhythm, ventricular rate 98 beats per minute, normal QTC, normal HI interval, no ST segment elevations or depressions Radiology Impression Discussion of test interpretation with radiology: I have reviewed the radiologist's reading. Radiologist Impression: EXAMINATION: XR CHEST CLINICAL INFORMATION: Cough with sputum and chest pain COMPARISON: 12/15/2023 and 05/19/2024 TECHNIQUE: 2 views of the chest were obtained. FINDINGS: No significant abnormality is noted involving the heart, lungs, mediastinum, bony thorax or soft tissues. I suspect that the equivocal hazy opacities seen surrounding the right percy which is unchanged may not be a real finding. XR/XR chest 2V IMPRESSION: No acute intrathoracic disease. External Record Review External record reviewed: Outpatient record and Prior outpatient radiology Tests considered The following testing was considered but not selected: Considered D-dimer to rule out PE or DVT, low clinical suspicion for this, his symptoms can be explained by his strep throat diagnosis Prescription Management I considered prescription management with: Pain Medication Social Determinants Patient?s care significantly limited by Social Determinants of Health including: Inadequate housing and Other Social Determinant of Health Critical Care Time Critical Care Time Critical Care Time: No Discharge Plan Discharge Clinical Impression: Acute streptococcal pharyngitis Patient Disposition: Home, Self-Care Instructions: Strep Throat (DC) Additional Instructions: Your chest x-ray today was normal. Your lab workup was unremarkable. Your found to have strep throat. Your given 1 dose of IV antibiotics. Oral antibiotics have been sent to your pharmacy, next dose is due tomorrow morning. Complete the entire course and do not miss any doses. Rest and stay hydrated, drink plenty of fluids. Take the prescribed ibuprofen as needed for chest pain and body aches. Prescriptions: New amoxicillin-pot clavulanate 875-125 mg tablet 1 tab PO BID Qty: 18 0RF ibuprofen 600 mg tablet 600 mg PO Q8H PRN (Reason: fever or pain) Qty: 14 0RF No Action amoxicillin 500 mg capsule 1,000 mg PO TID 5 Days Qty: 30 0RF doxycycline hyclate 100 mg capsule 100 mg PO BID 7 Days Qty: 14 0RF cephalexin 500 mg capsule 500 mg PO QID 10 Days Qty: 40 0RF ibuprofen 600 mg tablet 600 mg PO Q6H PRN (Reason: fever or pain) Qty: 30 0RF doxycycline hyclate 100 mg tablet 100 mg PO BID Qty: 20 0RF doxycycline monohydrate 100 mg capsule 100 mg PO BID Qty: 20 0RF ondansetron 4 mg tablet,disintegrating 4 mg PO Q8H PRN (Reason: nausea and vomiting) Qty: 20 0RF doxycycline hyclate 100 mg tablet 100 mg PO BID Qty: 20 0RF clotrimazole [Lotrimin AF (clotrimazole)] 1 % cream 1 appl topical BID 21 Days Qty: 45 0RF naproxen 500 mg tablet 500 mg PO BID PRN (Reason: pain) Qty: 20 0RF Referrals: Radha Vela MD [Primary Care Provider] - Stand Alone Forms: Work/School Release Print Language: Yi
[2024-05-22] MEDS: 0.9 % Sodium Chloride 1,000 ML 999 ML IVCONT (12:38)
[2024-05-22] MEDS: Ketorolac Tromethamine 15 MG/ML VIAL IVPUSH (12:42)
[2024-05-22] MEDS: ondansetron HCL 4 MG/2 ML VIAL IVPUSH (12:42)
[2024-05-22 12:43] LABS: MANUAL DIFF FLAG NO
--- NOTE | 2024-05-22 12:43 | PC.NURSE ---
pt medicated per DEC by Ruben RN
[2024-05-22 12:46] LABS: Basophils Absolute Auto 0.1 X10*3/uL (0.0-0.2); Basophils Percent Auto 0.8 % (0-2); Eosinophils Absolute Auto 0.4 X10*3/uL (0.0-0.4); Eosinophils Percent Auto 3.7 % (0-4); Hematocrit 37.4 % (42.0-52.0); Hemoglobin 12.2 g/dl (14.0-18.0); Imm Gran Abs Auto 0.11 X10*3/uL (0.00-0.03); Imm Gran Pct Auto 0.9 % (0.0-0.4); Lymphocytes Absolute Auto 2.1 X10*3/uL (1.2-4.9); Lymphocytes Percent Auto 17.3 % (20-40); Mean Corpuscular HGB Conc 32.6 g/dl (31.0-36.0); Mean Corpuscular Hemoglobin 27.2 pg (27.0-33.0); Mean Corpuscular Volume 83.3 fL (80.0-98.0); Mean Platelet Volume 9.5 fL (9.4-12.4); Monocytes Absolute Auto 0.9 X10*3/uL (0.1-1.2); Monocytes Percent Auto 7.5 % (2-11); Neutrophils Absolute Auto 8.3 x10*3/uL (2.0-8.3); Neutrophils Percent Auto 69.8 % (45-73); Platelet Count 312 X10*3/uL (160-400); Red Blood Count 4.49 X10*6/uL (4.60-5.80); Red Cell Distribution Width 14.6 % (11.0-16.0); White Blood Count 11.9 X10*3/uL (4.8-10.8)
[2024-05-22 13:05] LABS: Alanine Aminotransferase 40 U/L (0-40); Alkaline Phosphatase 85 U/L (39-117); Anion Gap 11 (12-20); Aspartate Amino Transferase 42 U/L (5-37); Bilirubin Total 0.2 mg/dL (0.0-1.0); Blood Urea Nitrogen 7 mg/dL (9-16); Calcium 9.5 mg/dL (8.4-10.2); Carbon Dioxide 27 mmol/L (22-29); Chloride 104 mmol/L (96-108); Creatinine Clr Calc Pharmacy 178.5; Estimated Glomerular Filt Rate > 60; Glucose Random 144 mg/dL (60-115); Magnesium 2.1 mg/dL (1.6-2.6); Sodium 138 mmol/L (135-145); Total Protein 8.2 g/dL (6.5-8.0)
[2024-05-22 13:06] LABS: IDNOW Serial# 08D9AD1C; Strep A Nucleic Acid Positive (Negative)
[2024-05-22 13:11] LABS: Troponin-I High Sensitivity < 2.7 ng/L (<3.5-35.0)
[2024-05-22 13:18] LABS: Monotest Negative (Negative)
[2024-05-22] MEDS: cefTRIAXone sodium 1 GM in 0.9 % Sodium Chloride 50 ML IV (13:29)
[2024-05-22 14:13] LABS: Influenza A PCR NEGATIVE (Negative); Influenza B PCR NEGATIVE (Negative); Resp Syncy Virus RNA Qual PCR NEGATIVE (Negative); SARS COV2 PCR INHOUSE NEGATIVE (Negative)
[2024-05-22 17:46] VITALS: BP 109/57; PULSE 88; RESP 20; TEMP 36.6; O2SAT 99
[2024-05-22 19:21] VITALS: BP 109/57; PULSE 88; RESP 20; TEMP 36.6; O2SAT 99
== END 2024-05-22 19:21 | disposition home or self-care (01) ==
PROVIDERS: Physician Assistant; Physician Assistant Medical; Emergency Provider Student in an Organized Health Care Education/Training Program; PCP Internal Medicine
DX: J02.0 Streptococcal pharyngitis (principal); Z03.818 Encounter for observation for suspected exposure to other biological agents ruled out; R05.9 Cough, unspecified
CPT/HCPCS: 0241U; 36415; 71046; 80053; 83735; 84484; 85025; 86308; 87651; 93005; 99284; J0696; J1885; J2405

== ENCOUNTER → 2024-05-22 11:10 | Outpatient (BNV) | payer OTHER, SELFPAY | PROVIDERS: Emergency Provider Student in an Organized Health Care Education/Training Program; PCP Internal Medicine; Visit Provider Internal Medicine Cardiovascular Disease | DX: R07.9 Chest pain, unspecified (principal) | CPT/HCPCS: 93010 ==

== ENCOUNTER 2024-05-28 16:11 | Emergency (ER) | payer OTHER, SELFPAY ==
[2024-05-28 16:32] VITALS: BP 151/98; PULSE 90; RESP 16; TEMP 37; O2SAT 98; BMI 42.9
--- NOTE | 2024-05-28 16:34 | ED.GENADULT ---
HPI - General Adult General Chief complaint: Medical Clearance Stated complaint: feeling unwell Time Seen by Provider: 05/28/24 17:39 Source: patient and EMS Mode of arrival: EMS Limitations: no limitations History of Present Illness ED Provider: Reena ALMAZAN HPI narrative: 24 yoa M otherwise healthy presenting to the ED for medical clearance, fell asleep at job [employer], narcan was admitted without much effect. No hx of drug use. Reports recently stopped use of marijuana. Denies headaches, SOB, dizziness, abdominal, and fatigue. Related Data Previous Rx's ?Medication ?Instructions ?Recorded doxycycline hyclate 100 mg tablet 100 mg PO BID #20 tabs 10/30/23 ondansetron 4 mg disintegrating 4 mg PO Q8H PRN nausea and 10/30/23 tablet vomiting #20 tabs amoxicillin 500 mg capsule 1,000 mg (2 x 500 mg) PO TID 5 12/16/23 days #30 caps doxycycline hyclate 100 mg capsule 100 mg PO BID 7 days #14 caps 12/16/23 clotrimazole 1 % topical cream 1 appl topical BID 21 days #45 01/03/24 (Lotrimin AF (clotrimazole)) grams cephalexin 500 mg capsule 500 mg PO QID 10 days #40 caps 04/09/24 doxycycline hyclate 100 mg tablet 100 mg PO BID #20 tabs 04/09/24 ibuprofen 600 mg tablet 600 mg PO Q6H PRN fever or pain 04/09/24 #30 tabs doxycycline monohydrate 100 mg 100 mg PO BID #20 caps 04/22/24 capsule naproxen 500 mg tablet 500 mg PO BID PRN pain #20 tabs 05/19/24 amoxicillin 875 mg-potassium 1 tab PO BID #18 tabs 05/22/24 clavulanate 125 mg tablet ibuprofen 600 mg tablet 600 mg PO Q8H PRN fever or pain 05/22/24 #14 tabs Allergies Allergy/AdvReac Type Severity Reaction Status Date / Time No Known Allergies Allergy Verified 05/28/24 16:34 [facility] Past Medical History Medical History Chronic back pain Social History Social History Alcohol intake: current Alcohol intake frequency: holidays/special occasions only Alcohol type: beer and hard liquor Substance Use Type: Marijuana Advance Directives: No Advance Directives Information Provided: No Physical Exam ED Vital Signs: Vital Signs - 24 hr 05/28/24 16:32 Temperature 98.6 F Pulse Rate 90 Respiratory Rate 16 Blood Pressure 151/98 H Pulse Oximetry 98 Oxygen Delivery Method Room Air BMI result Body Mass Index 42.9 Course Course Course Narrative: This is an RME done by APRIL Vásquez: Additional HPI, ROS, PE not included below will be deferred to primary provider. 24 yoa M otherwise healthy presenting to the ED for medical clearance, fell asleep at job [employer], narcan was admitted without much effect. No hx of drug use. Reports recently stopped use of marijuana. Denies headaches, SOB, dizziness, abdominal, and fatigue. Appearance: Alert.? Oriented X3.? No acute cardiopulmonary distress distress.? Head: Normocephalic, atraumatic, no step-offs or deformities Neck: Normal inspection.? Neck supple.? CVS: Pulses normal.? Respiratory: No respiratory distress.? Skin: ? Normal skin color. Extremities: 5/5 strength to bilateral upper and lower extremities Neuro: Oriented X 3.? No motor deficit.? No sensory deficit. Reevaluation(s) Reevaluation #1: urine toxicology negative. Patient feeling well. Alert oriented x4. He states he is just tired. Would like to go to sleep. Educated patient on diagnosis and treatment plan, answered all question, patient verbalizes understanding. At this time patient will be discharged home, advised to return with new or worsening symptoms. Educated on worrisome signs and symptoms and when to return. At this time I feel comfortable discharge home. 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 No hx of drug use. Reports recently stopped use of marijuana. Denies headaches, SOB, dizziness, abdominal, and fatigue. physical exam benign History and physical concerning for lack of sleep Vs exhaustion. Unlikely overdose, seizures, intracranial hemorrhage, stroke. plan ANEGL. Differential Diagnosis Differential Diagnoses: The differential diagnosis associated with the presentation includes History and physical concerning for lack of sleep Vs exhaustion. Unlikely overdose, seizures, intracranial hemorrhage, stroke. Admission/Observation Consideration of admission/observation: Escalation of care including admission/observation considered unlikely Lab Data Labs: Lab Results 05/28/24 Range/Units 17:13 Urine Opiates Screen Not Detected (Not Detect) Ur Buprenorphine Scrn Not Detected (Not Detect) ng/mL Ur Oxycodone Screen Not Detected (Not Detect) ng/mL Urine Methadone Screen Not Detected (Not Detect) ng/mL Urine Fentanyl Screen Not Detected (Not Detect) Ur Barbiturates Screen Not Detected (Not Detect) Ur Phencyclidine Scrn Not Detected (Not Detect) Ur Amphetamines Screen Not Detected (Not Detect) U Benzodiazepines Scrn Not Detected (Not Detect) Urine Cocaine Screen Not Detected (Not Detect) U Marijuana (THC) Screen Not Detected (Not Detect) Discharge Plan Discharge Clinical Impression: Normal exam Patient Disposition: Home, Self-Care Additional Instructions: Take your medications as prescribed. If you were prescribed antibiotics today, it is important that you take your medication to their entirety, do not skip any doses, do not finish them early. Follow-up with your primary care provider this week. Return to the emergency department with new or worsening symptoms. Such as fevers, chills, chest pain, shortness of breath, nausea, vomiting, dizziness, headache, vision changes, lethargy In case of emergency call 911 Prescriptions: No Action amoxicillin 500 mg capsule 1,000 mg PO TID 5 Days Qty: 30 0RF doxycycline hyclate 100 mg capsule 100 mg PO BID 7 Days Qty: 14 0RF cephalexin 500 mg capsule 500 mg PO QID 10 Days Qty: 40 0RF ibuprofen 600 mg tablet 600 mg PO Q6H PRN (Reason: fever or pain) Qty: 30 0RF doxycycline hyclate 100 mg tablet 100 mg PO BID Qty: 20 0RF doxycycline monohydrate 100 mg capsule 100 mg PO BID Qty: 20 0RF ondansetron 4 mg tablet,disintegrating 4 mg PO Q8H PRN (Reason: nausea and vomiting) Qty: 20 0RF doxycycline hyclate 100 mg tablet 100 mg PO BID Qty: 20 0RF clotrimazole [Lotrimin AF (clotrimazole)] 1 % cream 1 appl topical BID 21 Days Qty: 45 0RF naproxen 500 mg tablet 500 mg PO BID PRN (Reason: pain) Qty: 20 0RF amoxicillin-pot clavulanate 875-125 mg tablet 1 tab PO BID Qty: 18 0RF ibuprofen 600 mg tablet 600 mg PO Q8H PRN (Reason: fever or pain) Qty: 14 0RF Print Language: Emirati
[2024-05-28 17:32] LABS: Amphetamine Screen Urine Not Detected (Not Detect); Barbiturates, Urine Not Detected (Not Detect); Benzodiazepines Screen Urine Not Detected (Not Detect); Buprenorphine Scr Not Detected (Not Detect); Cannabinoid Screen Urine Not Detected (Not Detect); Cocaine Screen Urine Not Detected (Not Detect); Fentanyl, urine Not Detected (Not Detect); Methadone Screen, Urine Not Detected (Not Detect); Opiate Screen Urine Not Detected (Not Detect); Oxycodone Screen Urine Not Detected (Not Detect); Phencyclidine Screen Urine Not Detected (Not Detect)
[2024-05-28 18:41] VITALS: BP 156/87; PULSE 78; RESP 16; TEMP 36.9; O2SAT 98
== END 2024-05-28 18:42 | disposition home or self-care (01) ==
PROVIDERS: Physician Assistant; Emergency Provider Internal Medicine; PCP Internal Medicine
DX: F12.90 Cannabis use, unspecified, uncomplicated (principal); Z79.899 Other long term (current) drug therapy; Z51.81 Encounter for therapeutic drug level monitoring
CPT/HCPCS: 80307; 99282